=== PATIENT | male | born 1935 | race Caucasian/White ===

== ENCOUNTER 2016-11-23 09:29 | Day surgery (SDC) | payer OTHER, MEDICARE ==
[2016-11-22 13:52] VITALS: BMI 27.3
[2016-11-23] MEDS ORDERED: LIDOCAINE HCL 1%, 10 MG/ML (20ML VIAL) ONE (09:50)
[2016-11-23] MEDS ORDERED: PAPAVERINE HCL 30 MG/1 ML 10 ML VIAL NR ONE (10:11)
[2016-11-23] MEDS ORDERED: PROPOFOL 20 ML ONE ×5 (10:43→13:02)
[2016-11-23] MEDS ORDERED: MIDAZOLAM HCL 2 MG/2 ML SINGLE DOSE VIAL ONE ×2 (10:48→11:51)
--- NOTE | 2016-11-23 11:20 | HP ---
History & Physical Update - History History: No Change - Physical Physical: No Change - Assessment Assessment: No Change - Plan Plan: No Change (81 yo M presents to [facility] today for planned creation of left arm AV fistula with Dr. Suarez.)
[2016-11-23] MEDS ORDERED: ePHEDrine SULFATE 50 MG/1 ML AMPULE ONE (12:01)
[2016-11-23] MEDS ORDERED: PHENYLEPHRINE HCL 10 MG/1 ML SINGLE DOSE VIAL ONE (12:02)
[2016-11-23] MEDS ORDERED: SODIUM CHLORIDE 0.9% P/F 10 ML VIAL IJ ONE (12:02)
[2016-11-23] MEDS ORDERED: LIDOCAINE HCL 1%, 10 MG/ML (50 mL VIAL) IJ ONE ×2 (12:06)
[2016-11-23] MEDS ORDERED: POVIDONE-IODINE OINTMENT 10% - 28.4 GM TUBE TP ONE (12:46)
--- NOTE | 2016-11-23 13:21 | OP ---
Operative Note - Note: Operative Date: 11/23/16 Pre-Operative Diagnosis: Renal failure Operation: Creation AV fistula left arm Findings: Patent antecubital vein with cephalic vein proximally. Brachial artery 4-5 mm Post-Operative Diagnosis: Same as Pre-op Surgeon: Ravinder Suarez Teradata Developer: Zuleima Portillo Anesthesiologist/PHYSICAL THERAPIST TECHNICIAN: Jeremie Villatoro Anesthesia: Fractional Estimated Blood Loss (mls): 30
--- NOTE | 2016-11-23 13:24 | HP ---
Admitting History and Physical - Admission History of Present Illness: 81 year old male with chronic renal disease who will need dialysis in the near future. Right handed. History Source: Patient - Past Medical History Cardiovascular: Yes: HTN Pulmonary: Yes: COPD Gastrointestinal: Yes: Diverticulitis. No: Cancer Hepatobiliary: Yes: Cholelithiasis Renal/: Yes: Renal Inusuff, BPH Heme/Onc: Yes: Anemia Musculoskeletal: Yes: Osteoarthritis Rheumatology: Yes: Gout ENT: Yes: Allergic Rhinitis - Past Surgical History Past Surgical History: Yes: Appendectomy - Smoking History Smoking history: Never smoked Have you smoked in the past 12 months: No Aproximately how many cigarettes per day: 0 - Alcohol/Substance Use Hx Alcohol Use: No History of Substance Use: reports: None - Social History History of Recent Travel: No Home Medications - Allergies Allergies/Adverse Reactions: Allergies Allergy/AdvReac Type Severity Reaction Status Date / Time No Known Allergies Allergy Verified 11/23/16 10:05 - Home Medications Home Medications: Ambulatory Orders RX: Hydralazine HCl 100 mg PO TID 12/24/13 RX: Sodium Bicarbonate 650 mg PO TID 12/24/13 RX: Tamsulosin HCl 0.4 mg PO DAILY 12/24/13 RX: Diltiazem Cd [Cardizem Cd -] 360 mg PO DAILY 02/02/16 RX: Ferrous Sulfate [Feosol] 325 mg PO DAILY 02/02/16 RX: Finasteride [Proscar -] 5 mg PO DAILY 02/02/16 RX: Clonidine HCl 0.1 mg PO BID 02/03/16 Physical Examination Vital Signs: Vital Signs Temperature 97.8 F 11/23/16 10:07 Pulse Rate 96 H 11/23/16 10:07 Respiratory Rate 16 11/23/16 10:07 Blood Pressure 135/63 11/23/16 10:07 O2 Sat by Pulse Oximetry (%) 96 11/23/16 10:07 Constitutional: Yes: No Distress Eyes: Yes: EOM Intact HENT: Yes: Atraumatic, Normocephalic Neck: Yes: Supple Cardiovascular: Yes: Regular Rate and Rhythm Respiratory: Yes: Regular Gastrointestinal: Yes: Soft Edema: No Peripheral Pulses WNL: Yes Problem List - Problems (1) Chronic kidney disease, stage 5 Assessment/Plan: Plan creation AV fistula left arm. Code(s): N18.5 - CHRONIC KIDNEY DISEASE, STAGE 5
[2016-11-23] MEDS ORDERED: oxyCODONE HCL 5 MG TABLET PO PRN (13:25)
[2016-11-23 14:27] VITALS: TEMP 98.3
--- NOTE | 2016-11-23 14:33 | SURG ---
Surgery Stemhole Borer And Topper Note Stemhole Borer And Topper: Zuleima Portillo PA-C Date of Service: 11/23/16 Diagnosis: Renal failure Procedure: Creation AV fistula left arm I was present for the entirety of the operative procedure. For further detail, please refer to operative report. Visit type - Case Type Case Type: Scheduled Admission - New patient This patient is new to me today: Yes Date on this admission: 11/23/16
[2016-11-23 15:46] VITALS: BP 115/52; PULSE 80
--- NOTE | 2016-11-24 08:59 | OP ---
DATE OF OPERATION: 11/23/2016 SURGEON: Ravinder Suarez MD PLANT CHANGER: ZEYNEP Portillo PROCEDURE: Creation arteriovenous fistula left arm. PREOPERATIVE DIAGNOSIS: Renal failure. POSTOPERATIVE DIAGNOSIS: Renal failure. ANESTHESIA: Fractional. ANESTHESIOLOGIST: Jeremie Villatoro MD OPERATIVE FINDINGS: The antecubital vein was patent, with a diameter of approximately 3 to 4 mm. The brachial artery was patent, with a good pulse. OPERATIVE PROCEDURE: Following routine patient identification, side and site verification, intravenous sedation was established. The left arm was prepped with ChloraPrep. One percent Xylocaine was infiltrated in the antecubital fossa, and a skin incision was made between the cephalic vein and brachial artery, which had been mapped preoperatively with duplex imaging. The vein was identified and was mobilized. It was ligated distally and incised. It was distended with heparin and papaverine solution. A number 5 feeding tube was passed proximally without resistance. The distal vein was too small to allow the number 8 feeding tube to be passed. The brachial artery was then exposed by deepening the incision through the muscle fascia. It was encircled proximally and distally with vessel loops. The artery was then occluded with bulldog clamp and vessel loop, and opened on exposed surface with a 6-mm arteriotomy. The vein was freed after dividing all side branches and spatulated. It was anastomosed to the side of the artery with running suture of 6-0 Prolene. Prior to completion of the suture line, the area was allowed to back bleed and the vein was flushed with heparin solution. The suture line was completed and all vessels were released. There was good flow through the anastomosis with a palpable thrill in the vein. The wound was closed with interrupted suture of 3-0 Vicryl and skin davion. Sterile dressings were applied. The patient was taken to the recovery room in stable condition. Giselle [id number]
== END 2016-11-23 15:40 | disposition home or self-care (01) ==
LOC: JASU-SURG 09:29
PROVIDERS: ATTEND Surgery
PROC: 03180ZD Bypass Left Brachial Artery to Upper Arm Vein, Open Approach (ICD-10-PCS; principal; 2016-11-23 11:00)
DX: I12.0 Hypertensive chronic kidney disease with stage 5 chronic kidney disease or end stage renal disease (principal); N18.6 End stage renal disease; Z99.2 Dependence on renal dialysis
CPT/HCPCS: 94760

== ENCOUNTER 2017-10-28 08:35 | Emergency (ER) | payer OTHER, MEDICARE ==
[2017-10-28 08:40] VITALS: BP 160/77; PULSE 94; BMI 25.8
--- NOTE | 2017-10-28 08:49 | PDOC ---
Attending Attestation - Resident Resident Name: Yue Bhagat - HPI HPI: 10/28/17 10:02 Pt presents to the ED requesting HD. he was told by Dr. Johnson that his potassium was high and that he should come to the ED to be admitted for HD. Denies complaints. - Physicial Exam PE: 10/28/17 10:04 Agree with resident exam. Patient is well appearing and in no acute distress. Lungs are clear. - Medical Decision Making 10/28/17 10:05 Pt presents to the ED requesting HD. Sent in by Dr. Johnson. Will check labs , admit for HD.
--- NOTE | 2017-10-28 08:52 | PDOC ---
History of Present Illness - General Chief Complaint: Revisit, Lab Variance Stated Complaint: PCP SENT Time Seen by Provider: 10/28/17 08:46 - History of Present Illness Initial Comments: 10/28/17 09:21 82 y.o. male with a PMH of HTN and worsening CKD presents to the ED following lab work @ his food beverage attendant's office that showed hyperkalemia at a self- reported level of 6. Patient states he had an AV fistula placed in 2016 in anticipation of starting dialysis. Patient denies any chest pain, shortness of breath, nausea/vomiting, constipation/diarrhea, or fevers/chills. Patient's son @ bedside note patient has been evaluated weekly by Dr. Johnson (nephrology ) for his CKD and they decided to initiate HD today following the reported hyperakalemia. NKDA Surgical: appendectomy (childhood), LUE fistula (2016) Social: denies current nicotine (previously 1 ppd - 10 years), denies alcohol, denies recreational drugs PMD: Dr. Mccoy Past History - Past Medical History Allergies/Adverse Reactions: Allergies Allergy/AdvReac Type Severity Reaction Status Date / Time No Known Allergies Allergy Verified 10/28/17 08:41 Home Medications: Ambulatory Orders Diltiazem HCl [Diltiazem ER] 360 mg PO ASDIR 10/28/17 Hydralazine HCl 100 mg PO TID 10/28/17 cloNIDine HCL [Catapres -] 0.3 mg PO TID 10/28/17 Anemia: No Asthma: No Cancer: No Cardiac Disorders: No CVA: No COPD: No CHF: No Dementia: No Diabetes: No GI Disorders: No Disorders: Yes (LARGE PROSTATE) HTN: Yes Hypercholesterolemia: Yes Liver Disease: No Seizures: No Thyroid Disease: No - Surgical History Abdominal Surgery: No Appendectomy: Yes (RUPTURED 30 YRS AGO) Cardiac Surgery: No Cholecystectomy: No Lung Surgery: No Neurologic Surgery: No Orthopedic Surgery: No - Suicide/Smoking/Psychosocial Hx Smoking Status: No Smoking History: Never smoked Have you smoked in the past 12 months: No Number of Cigarettes Smoked Daily: 0 Hx Alcohol Use: No Drug/Substance Use Hx: No Substance Use Type: None Hx Substance Use Treatment: No Review of Systems - Review of Systems Constitutional: No: Chills, Fever HEENTM: No: Blurred Vision Respiratory: No: Cough, Shortness of Breath Cardiac (ROS): No: Chest Pain, Lightheadedness, Palpitations ABD/GI: No: Constipated, Diarrhea, Nausea, Vomiting : No: Burning, Dysuria *Physical Exam - Vital Signs Last Vital Signs Temp Pulse Resp BP Pulse Ox 94 H 20 160/77 99 10/28/17 08:37 10/28/17 08:37 10/28/17 08:37 10/28/17 08:37 - Physical Exam General Appearance: Yes: Nourished, Appropriately Dressed HEENT: positive: EOMI. negative: Scleral Icterus (R), Scleral Icterus (L) Neck: positive: Trachea midline, Supple Respiratory/Chest: positive: Lungs Clear Cardiovascular: positive: S1, S2. negative: Edema, JVD, Murmur Gastrointestinal/Abdominal: positive: Normal Bowel Sounds Extremity: positive: Normal Capillary Refill, Normal Inspection, Other (LUE fistula - audible bruit) Integumentary: positive: Normal Color, Dry, Warm Neurologic: positive: Fully Oriented, Alert ED Treatment Course - LABORATORY CBC & Chemistry Diagram: 10/28/17 09:30 10/28/17 09:30 Medical Decision Making - Medical Decision Making 10/28/17 09:23 Well appearing 82 y.o. male who presents to ED for initiation of dialysis. Patient notes reported h/o recent hyperkalemia @ food beverage attendant's office prompting his visit to our ED for admission. Will obtain basic labs + EKG/CXR for admission. Case d/w Dr. Ware (food beverage attendant covering for Dr. Johnson) and Dr. Mccoy agree w/admission for HD initiation. 10/28/17 11:52 K+ 4.9 (slight hemolysis); Cr 6.8 (3.1 in 01/2016). Hospitalist paged for admission. 10/28/17 12:59 Patient refusing repeat K+ and admission for dialysis. Paged Dr. Ware to discuss case. Patient and patient's son and @ bedside counseled on risks of hyperkalemia including arryhtmia leading to and patient discharged home against medical advice. *DC/Admit/Observation/Transfer Diagnosis at time of Disposition: AMA - Signed out against medical advice - Discharge Dispostion Disposition: HOME Condition at time of disposition: Good - Referrals Referrals: Parker Mccoy MD [Primary Care Provider] - - Patient Instructions - Post Discharge Activity
[2017-10-28 09:46] LABS: BASO % 0.8 % (0-2.0); EOS % 6.6 % (0-4.5); HEMATOCRIT 31.3 % (35.4-49); HEMOGLOBIN 10.3 GM/dL (11.7-16.9); LYMPH % 24.7 % (8-40); MCH 31.1 pg (25.7-33.7); MEAN CELL VOLUME 94.1 fl (80-96); MEAN PLT VOLUME 8.1 fl (7.5-11.1); MONO % 7.3 % (3.8-10.2); NEUT % 60.6 % (42.8-82.8); PLATELET COUNT 192 K/MM3 (134-434); RBC 3.33 M/mm3 (4.00-5.60); RDW 13.9 % (11.9-15.9); WHITE BLOOD COUNT 7.6 K/mm3 (4.0-10.0)
[2017-10-28 09:59] VITALS: TEMP 97.8
[2017-10-28 10:52] LABS: ALBUMIN 3.7 g/dl (3.4-5.0); ALK PHOS 99 U/L (45-117); ANION GAP 15 (8-16); BILIRUBIN,TOTAL 0.4 mg/dL (0.2-1.0); BLOOD UREA NITROGEN 86 mg/dL (7-18); CALCIUM 9.4 mg/dL (8.5-10.1); CHLORIDE 105 mmol/L (98-107); CO2 21 mmol/L (21-32); CREATININE 6.8 mg/dL (0.7-1.3); GLUCOSE,RANDOM 105 mg/dL (74-106); SGPT/ALT 15 U/L (12-78); SODIUM 141 mmol/L (136-145); TOT PROT 7.3 g/dl (6.4-8.2)
[2017-10-28 11:17] LABS: POTASSIUM 4.9 mmol/L (3.5-5.1)
[2017-10-28 11:18] LABS: SGOT/AST 25 U/L (15-37)
--- NOTE | 2017-10-28 11:38 | EKG ---
Test Reason : Blood Pressure : / mmHG Vent. Rate : 076 BPM Atrial Rate : 076 BPM P-R Int : 204 ms QRS Dur : 092 ms QT Int : 406 ms P-R-T Axes : 082 -18 014 degrees QTc Int : 456 ms NORMAL SINUS RHYTHM NONSPECIFIC ST ABNORMALITY BASELINE ARTIFACT ABNORMAL ECG Confirmed by MD DANNY, GRACY ([id number]) on 10/28/2017 11:37:56 AM Referred By: Confirmed By:GRACY DELGADO MD
[2017-10-28 11:40] LABS: URINE APPEARANCE CLEAR; URINE BILIRUBIN NEGATIVE (NEGATIVE); URINE BLOOD NEGATIVE (NEGATIVE); URINE COLOR STRAW; URINE GLUCOSE (UA) NEGATIVE (NEGATIVE); URINE KETONE NEGATIVE (NEGATIVE); URINE LEUK ESTERASE NEGATIVE (NEGATIVE); URINE NITRITE NEGATIVE (NEGATIVE); URINE UROBILINOGEN NEGATIVE mg/dL (0.2-1.0)
[2017-10-28 11:58] LABS: URINE PROTEIN 2+ (NEGATIVE)
[2017-10-28 12:36] LABS: URINE MUCUS RARE
[2017-10-28] MEDS ORDERED: EPOETIN ALFA 10,000 UNIT/1 ML VIAL IVPUSH ONE (13:04)
[2017-10-29 08:12] LABS: MAGNESIUM 2.6 mg/dL (1.8-2.4); PHOSPHOROUS 5.5 mg/dL (2.5-4.9)
== END 2017-10-28 13:01 | disposition home or self-care (01) ==
LOC: JER 08:35
DX: Z53.21 Procedure and treatment not carried out due to patient leaving prior to being seen by health care provider (principal); I10 Essential (primary) hypertension; E78.00 Pure hypercholesterolemia, unspecified; N40.0 Benign prostatic hyperplasia without lower urinary tract symptoms
CPT/HCPCS: 36415; 71046-TC-FY; 80053; 81003; 81015; 83735; 84100; 85025; 93005; 93010; 99283-25

== ENCOUNTER 2021-08-12 19:25 | Emergency (ER) | payer OTHER, MEDICARE ==
[2021-08-12 20:19] VITALS: BP 173/65; PULSE 64; TEMP 97.7; BMI 24.9
== END 2021-08-12 21:41 | disposition home or self-care (01) ==
LOC: JER 19:25
DX: S51.812A Laceration without foreign body of left forearm, initial encounter (principal); Y99.9 Unspecified external cause status
CPT/HCPCS: 99281-25

== ENCOUNTER 2021-09-22 04:12 | Day surgery (SDC) | payer OTHER, MEDICARE ==
[2021-09-20 15:49] VITALS: BMI 27.3
[2021-09-22] MEDS ORDERED: MIDAZOLAM HCL 2 MG/2 ML SINGLE DOSE VIAL ONE (14:50)
[2021-09-22] MEDS ORDERED: PROPOFOL 20 ML ONE (14:50)
[2021-09-22] MEDS ORDERED: HEPARIN NA (PORCINE) 5,000 UNITS/ML 1ML VIAL ONE (14:52)
[2021-09-22] MEDS ORDERED: LIDOCAINE HCL 1%, 10 MG/ML (20ML VIAL) ONE (14:52)
[2021-09-22] MEDS ORDERED: POVIDONE-IODINE OINTMENT 10% - 28.4 GM TUBE ONE (14:53)
[2021-09-22] MEDS ORDERED: ceFAZolin SODIUM 1 GM VIAL IVPB ONE (15:42)
[2021-09-22] MEDS ORDERED: HEPARIN NA (PORCINE) 5,000 UNITS/ML 1ML VIAL SQ ONE (15:49)
[2021-09-22] MEDS ORDERED: LIDOCAINE HCL 1%, 10 MG/ML (20ML VIAL) NR ONE (15:50)
[2021-09-22] MEDS ORDERED: ceFAZolin SODIUM 1 GM VIAL ONE (16:03)
[2021-09-22] MEDS ORDERED: ONDANSETRON 4 MG/2 ML VIAL ONE (16:03)
[2021-09-22] MEDS ORDERED: oxyCODONE HCL 5 MG TABLET PO PRN ×2 (17:24→17:26)
[2021-09-22] MEDS ORDERED: ONDANSETRON 4 MG/2 ML VIAL IVPUSH PRN (17:26)
[2021-09-22] MEDS ORDERED: ACETAMINOPHEN 1000 MG/100 ML BAG IVPB PRN (17:27)
[2021-09-22] MEDS ORDERED: LABETALOL HCL 5 MG/1 ML (100MG/20 ML VIAL) ONE (17:51)
[2021-09-22 18:07] VITALS: TEMP 97.5
[2021-09-22] MEDS ORDERED: hydrALAZINE HCL 20 MG/ML VIAL ONE (18:18)
[2021-09-22] MEDS ORDERED: LABETALOL HCL 5 MG/1 ML (100MG/20 ML VIAL) IVPUSH ONE (18:20)
[2021-09-22] MEDS ORDERED: hydrALAZINE HCL 20 MG/ML VIAL IVPUSH ONE (18:21)
[2021-09-22 19:38] VITALS: BP 108/58; PULSE 65
== END 2021-09-22 19:37 | disposition home or self-care (01) ==
LOC: JASU-SURG 04:12
PROVIDERS: ATTEND Surgery
PROC: 03180JD Bypass Left Brachial Artery to Upper Arm Vein with Synthetic Substitute, Open Approach (ICD-10-PCS; principal; 2021-09-22 16:00)
DX: T82.898A Other specified complication of vascular prosthetic devices, implants and grafts, initial encounter (principal); Y83.2 Surgical operation with anastomosis, bypass or graft as the cause of abnormal reaction of the patient, or of later complication, without mention of misadventure at the time of the procedure; I12.0 Hypertensive chronic kidney disease with stage 5 chronic kidney disease or end stage renal disease; N18.6 End stage renal disease; Z99.2 Dependence on renal dialysis
CPT/HCPCS: 94760; J1644

== ENCOUNTER 2022-09-26 10:29 | Inpatient (IN) | payer OTHER, MEDICARE ==
[2022-09-26] MEDS ORDERED: ACETAMINOPHEN INJECTION 100 ML IVPB ONE (11:51)
[2022-09-26] MEDS ORDERED: ACETAMINOPHEN 500 MG TABLET (FP) PO ONE (11:52)
[2022-09-26] MEDS ORDERED: ACETAMINOPHEN 1000 MG/100 ML BAG IVPB ONE (12:01)
[2022-09-26 12:32] LABS: HEMATOCRIT 37.2 % (35.4-49); HEMOGLOBIN 12.4 GM/dL (11.7-16.9); MCH 32.1 pg (25.7-33.7); MCHC 33.3 g/dl (32.0-35.9); MEAN CELL VOLUME 96.4 fl (80-96); MEAN PLT VOLUME 7.8 fl (7.5-11.1); PLATELET COUNT 131 10^3/uL (134-434); RBC 3.86 M/mm3 (4.00-5.60); WHITE BLOOD COUNT 14.1 K/mm3 (4.0-10.0)
[2022-09-26 12:34] LABS: EPI CELLS 2 /uL (0-25.1); HYALINE CASTS 0 /uL (0-3.1); PH,URINE >= 9.0 (5.0-8.0); URINE APPEARANCE CLEAR; URINE BACTERIA 8 /uL (0-1359); URINE BILIRUBIN NEGATIVE (NEGATIVE); URINE COLOR YELLOW; URINE GLUCOSE (UA) TRACE (NEGATIVE); URINE KETONE NEGATIVE (NEGATIVE); URINE LEUK ESTERASE NEGATIVE (NEGATIVE); URINE NITRITE NEGATIVE (NEGATIVE); URINE PROTEIN 3+ (NEGATIVE); URINE RBC 396 /uL (0-23.9); URINE UROBILINOGEN 0.2 mg/dL (0.2-1.0); URINE WBC 5 /uL (0-25.8)
[2022-09-26 12:39] LABS: INR 1.08 (0.83-1.09); PROTHROMBIN TIME (PATIENT) 12.4 SEC (9.7-13.0); VENOUS BASE EXCESS 2.5 mmol/L (-2-2); VENOUS O2 SATURATION 87.7 % (70-80); VENOUS PCO2 36.4 mmHg (38-52); VENOUS PH 7.471 (7.310-7.410)
[2022-09-26 12:42] LABS: ACTIVATED PTT 29.7 SECONDS (25.2-36.5)
[2022-09-26 13:04] LABS: ALBUMIN 3.2 g/dl (3.4-5.0); BLOOD UREA NITROGEN 33.4 mg/dL (7-18); CALCIUM 10.2 mg/dL (8.5-10.1)
[2022-09-26 13:07] LABS: CREATININE 5.8 mg/dL (0.55-1.3)
[2022-09-26 13:08] LABS: ANISOCYTOSIS 0; MACROCYTOSIS 0; TOT PROT 6.4 g/dl (6.4-8.2)
[2022-09-26 13:09] LABS: BILIRUBIN,TOTAL 0.5 mg/dL (0.2-1)
[2022-09-26] MEDS ORDERED: PIPERACILLIN/TAZOB 4.5 GM 4.5 GM in DEXTROSE 5%-WATER 100 ML IVPB ONE (13:38)
[2022-09-26] MEDS ORDERED: PIPERACILLIN/TAZOB 4.5 GM 4.5 GM/100 ML BAG IVPB ONE (13:47)
[2022-09-26] MEDS ORDERED: ACETAMINOPHEN 325 MG TABLET (FP) PO PRN (17:44)
[2022-09-26 21:26] LABS: HEMOGLOBIN 11.8 GM/dL (11.7-16.9); MCH 31.9 pg (25.7-33.7); MCHC 32.8 g/dl (32.0-35.9); MEAN CELL VOLUME 97.2 fl (80-96); MEAN PLT VOLUME 8.2 fl (7.5-11.1); PLATELET COUNT 126 10^3/uL (134-434); RDW 14.2 % (11.9-15.9)
[2022-09-26] MEDS ORDERED: HEPARIN NA (PORCINE) 5,000 UNITS/ML 1ML VIAL SQ SCH (22:00)
[2022-09-26] MEDS: PIPERACILLIN/TAZOB 2.25 GM 2.25 GM in DEXTROSE 5%-WATER - 50 ML IVPB SCH (22:49)
[2022-09-27 02:57] LABS: INR 1.21 (0.83-1.09); PROTHROMBIN TIME (PATIENT) 13.9 SEC (9.7-13.0)
[2022-09-27 03:02] LABS: HEMATOCRIT 36.8 % (35.4-49); HEMOGLOBIN 12.4 GM/dL (11.7-16.9); MCH 32.3 pg (25.7-33.7); MCHC 33.6 g/dl (32.0-35.9); MEAN CELL VOLUME 96.2 fl (80-96); MEAN PLT VOLUME 8.3 fl (7.5-11.1); PLATELET COUNT 117 10^3/uL (134-434); RBC 3.82 M/mm3 (4.00-5.60); WHITE BLOOD COUNT 8.6 K/mm3 (4.0-10.0)
[2022-09-27] MEDS ORDERED: VANCOMYCIN PREMIX 1.5 GM 1,500 MG/300 ML BAG IVPB ONE (03:30)
[2022-09-27] MEDS ORDERED: SODIUM CHLORIDE 500 ML IV STA (06:29)
[2022-09-27] MEDS: PIPERACILLIN/TAZOB 2.25 GM 2.25 GM in DEXTROSE 5%-WATER - 50 ML IVPB SCH ×2 (06:34→15:46)
[2022-09-27 08:56] LABS: ANISOCYTOSIS 0; HELMET CELLS 0; HOWELL-JOLLY BODIES 0; MACROCYTOSIS 0; OVALOCYTE 0; ROULEAU 0; SICKELED CELLS 0; TARGET CELLS 0; TEAR DROP CELLS 0; TOXIC GRANULATION 0
[2022-09-27 10:36] LABS: BASO % 0.1 % (0-2.0); HEMATOCRIT 34.6 % (35.4-49); HEMOGLOBIN 11.3 GM/dL (11.7-16.9); LYMPH % 6.2 % (8-40); MCH 31.6 pg (25.7-33.7); MCHC 32.7 g/dl (32.0-35.9); MEAN CELL VOLUME 96.6 fl (80-96); MEAN PLT VOLUME 9.1 fl (7.5-11.1); MONO % 8.1 % (3.8-10.2); NEUT % 85.6 % (42.8-82.8); PLATELET COUNT 125 10^3/uL (134-434); RBC 3.58 M/mm3 (4.00-5.60); RDW 13.6 % (11.9-15.9)
[2022-09-27 10:38] LABS: INR 1.21 (0.83-1.09); PROTHROMBIN TIME (PATIENT) 13.9 SEC (9.7-13.0)
[2022-09-27 10:56] LABS: CHLORIDE 105 mmol/L (98-107); SODIUM 140 mmol/L (136-145)
[2022-09-27 11:05] LABS: ALBUMIN 2.6 g/dl (3.4-5.0); ANION GAP 15 MMOL/L (8-16); CO2 20 mmol/L (21-32); GLUCOSE,RANDOM 114 mg/dL (74-106); MAGNESIUM 2.1 mg/dL (1.8-2.4)
[2022-09-27 11:06] LABS: PHOSPHOROUS 7.2 mg/dL (2.5-4.9); SGPT/ALT 43 U/L (13-61)
[2022-09-27 11:07] LABS: SGOT/AST 98 U/L (15-37)
[2022-09-27 11:08] LABS: BILIRUBIN,TOTAL 0.7 mg/dL (0.2-1); TOT PROT 5.5 g/dl (6.4-8.2)
[2022-09-27 11:09] LABS: ALK PHOS 69 U/L (45-117)
[2022-09-27 11:10] LABS: BLOOD UREA NITROGEN 61.1 mg/dL (7-18); CREATININE 8.5 mg/dL (0.55-1.3)
[2022-09-27] MEDS ORDERED: HEPARIN NA (PORCINE) 5,000 UNITS/ML 1ML VIAL ONE (15:04)
[2022-09-27] MEDS ORDERED: BUPIVACAINE HCL/PF 0.5% (5MG/ML) 10 ML VIAL ONE (15:18)
[2022-09-27] MEDS ORDERED: LIDOCAINE HCL 1%, 10 MG/ML (20ML VIAL) ONE (15:18)
[2022-09-27] MEDS ORDERED: PAPAVERINE HCL 30 MG/1 ML 10 ML VIAL NR ONE (15:18)
[2022-09-27] MEDS ORDERED: POVIDONE-IODINE OINTMENT 10% - 28.4 GM TUBE ONE (15:19)
[2022-09-27] MEDS ORDERED: SODIUM CHLORIDE 250 ML IV PRN ×2 (16:05→18:55)
[2022-09-27] MEDS ORDERED: PROMETHAZINE HCL 25 MG/1 ML VIAL IVPB PRN ×2 (17:15→18:55)
[2022-09-27] MEDS ORDERED: ONDANSETRON 4 MG/2 ML VIAL IVPUSH PRN ×2 (17:15→18:55)
[2022-09-27] MEDS ORDERED: SODIUM CHLORIDE 1,000 ML IV SCH ×2 (17:15→18:55)
[2022-09-27] MEDS ORDERED: PROPOFOL 20 ML ONE (17:32)
[2022-09-27] MEDS ORDERED: LIDOCAINE HCL/PF 2% SDV 5ML VIAL ONE (17:36)
[2022-09-27] MEDS ORDERED: DEXAMETHASONE SOD PHOSPHATE 4 MG/1 ML VIAL ONE (17:49)
[2022-09-27] MEDS ORDERED: ONDANSETRON 4 MG/2 ML VIAL ONE (17:49)
[2022-09-27] MEDS ORDERED: HEPARIN NA (PORCINE) 5,000 UNITS/ML 1ML VIAL TP ONE (18:17)
[2022-09-27] MEDS ORDERED: ACETAMINOPHEN 325 MG TABLET (FP) PO PRN ×2 (18:55→19:05)
[2022-09-27] MEDS ORDERED: oxyCODONE HCL 5 MG TABLET PO PRN (19:05)
[2022-09-28] MEDS ORDERED: SODIUM CHLORIDE 250 ML IV PRN ×2 (08:55→12:07)
[2022-09-28 10:53] LABS: INR 1.07 (0.83-1.09); PROTHROMBIN TIME (PATIENT) 12.3 SEC (9.7-13.0)
[2022-09-28 10:58] LABS: BASO % 0.1 % (0-2.0); HEMATOCRIT 32.5 % (35.4-49); HEMOGLOBIN 10.9 GM/dL (11.7-16.9); LYMPH % 6.9 % (8-40); MCH 32.2 pg (25.7-33.7); MCHC 33.4 g/dl (32.0-35.9); MEAN CELL VOLUME 96.5 fl (80-96); MEAN PLT VOLUME 9.4 fl (7.5-11.1); MONO % 8.4 % (3.8-10.2); NEUT % 84.6 % (42.8-82.8); PLATELET COUNT 136 10^3/uL (134-434); RBC 3.37 M/mm3 (4.00-5.60); RDW 13.9 % (11.9-15.9); WHITE BLOOD COUNT 16.6 K/mm3 (4.0-10.0)
[2022-09-28 11:11] LABS: CHLORIDE 103 mmol/L (98-107); SODIUM 139 mmol/L (136-145)
[2022-09-28 11:22] LABS: CALCIUM 10.1 mg/dL (8.5-10.1); GLUCOSE,RANDOM 119 mg/dL (74-106)
[2022-09-28 11:23] LABS: ALBUMIN 2.6 g/dl (3.4-5.0); ANION GAP 16 MMOL/L (8-16); CO2 20 mmol/L (21-32); MAGNESIUM 2.2 mg/dL (1.8-2.4)
[2022-09-28 11:25] LABS: SGOT/AST 59 U/L (15-37); SGPT/ALT 49 U/L (13-61)
[2022-09-28 11:26] LABS: BILIRUBIN,TOTAL 0.5 mg/dL (0.2-1); TOT PROT 5.5 g/dl (6.4-8.2)
[2022-09-28 11:27] LABS: ALK PHOS 73 U/L (45-117)
[2022-09-28 11:36] LABS: BLOOD UREA NITROGEN 88.2 mg/dL (7-18); CREATININE 10.1 mg/dL (0.55-1.3)
[2022-09-28] MEDS ORDERED: SODIUM CHLORIDE 1,000 ML IV SCH (12:07)
[2022-09-28] MEDS ORDERED: ACETAMINOPHEN 325 MG TABLET (FP) PO PRN (12:07)
[2022-09-28] MEDS ORDERED: oxyCODONE HCL 5 MG TABLET PO PRN (12:07)
[2022-09-28] MEDS: CALCIUM ACETATE 667 MG CAPSULE (FP) PO SCH ×2 (14:16→22:34)
[2022-09-28] MEDS ORDERED: EPOETIN ALFA-EPBX 10,000 UNIT/ML VIAL SQ ONE (16:05)
[2022-09-28] MEDS: METOPROLOL TARTRATE 25 MG TABLET (FP) PO SCH ×2 (16:33→22:35)
[2022-09-28] MEDS ORDERED: HEPARIN NA (PORCINE) 5,000 UNITS/ML 1ML VIAL SQ SCH (22:00)
[2022-09-28] MEDS ORDERED: APIXABAN 5 MG TABLET PO SCH (22:00)
[2022-09-28] MEDS: TAMSULOSIN HCL 0.4 MG CAP PO SCH (22:34)
[2022-09-28] MEDS: APIXABAN 2.5 MG TABLET PO SCH (22:35)
[2022-09-28] MEDS: ACETAMINOPHEN 325 MG TABLET (FP) PO PRN (22:48)
[2022-09-29] MEDS: CALCIUM ACETATE 667 MG CAPSULE (FP) PO SCH ×3 (06:42→22:17)
[2022-09-29 08:18] LABS: HEMATOCRIT 31.5 % (35.4-49); HEMOGLOBIN 10.6 GM/dL (11.7-16.9); MCHC 33.5 g/dl (32.0-35.9); MEAN CELL VOLUME 95.5 fl (80-96); MEAN PLT VOLUME 9.5 fl (7.5-11.1); PLATELET COUNT 127 10^3/uL (134-434); RBC 3.29 M/mm3 (4.00-5.60); RDW 13.8 % (11.9-15.9); WHITE BLOOD COUNT 12.3 K/mm3 (4.0-10.0)
[2022-09-29] MEDS ORDERED: SODIUM CHLORIDE 250 ML IV PRN (08:30)
[2022-09-29 08:38] LABS: ALBUMIN 2.4 g/dl (3.4-5.0); CALCIUM 9.7 mg/dL (8.5-10.1)
[2022-09-29 08:42] LABS: BILIRUBIN,TOTAL 0.7 mg/dL (0.2-1); CREATININE 7.3 mg/dL (0.55-1.3); TOT PROT 5.3 g/dl (6.4-8.2)
[2022-09-29] MEDS: APIXABAN 2.5 MG TABLET PO SCH ×2 (11:07→22:17)
[2022-09-29] MEDS: METOPROLOL TARTRATE 25 MG TABLET (FP) PO SCH ×2 (11:10→22:17)
[2022-09-29] MEDS: FINASTERIDE 5 MG TABLET (FP) PO SCH (11:10)
[2022-09-29 11:27] LABS: ANISOCYTOSIS 0; MACROCYTOSIS 0; OVALOCYTE 1+
[2022-09-29 16:32] LABS: INR 1.24 (0.83-1.09); PROTHROMBIN TIME (PATIENT) 14.3 SEC (9.7-13.0)
[2022-09-29] MEDS: ACETAMINOPHEN 325 MG TABLET (FP) PO PRN ×2 (17:25→22:18)
[2022-09-29] MEDS ORDERED: VANCOMYCIN/WATER FOR INJ (PEG) 1,000 MG/200 ML BAG IVPB ONE (17:30)
[2022-09-29] MEDS: CEFAZOLIN 1 GM in DEXTROSE 5%-WATER - 50 ML IVPB SCH (18:47)
[2022-09-29] MEDS: TAMSULOSIN HCL 0.4 MG CAP PO SCH (22:17)
[2022-09-30] MEDS: CALCIUM ACETATE 667 MG CAPSULE (FP) PO SCH ×3 (06:03→21:53)
[2022-09-30 08:14] LABS: HEMATOCRIT 33.8 % (35.4-49); MCH 31.7 pg (25.7-33.7); MCHC 32.7 g/dl (32.0-35.9); MEAN CELL VOLUME 96.9 fl (80-96); MEAN PLT VOLUME 9.4 fl (7.5-11.1); PLATELET COUNT 136 10^3/uL (134-434); RBC 3.48 M/mm3 (4.00-5.60); RDW 13.9 % (11.9-15.9); WHITE BLOOD COUNT 15.5 K/mm3 (4.0-10.0)
[2022-09-30 08:19] LABS: INR 1.13 (0.83-1.09); PROTHROMBIN TIME (PATIENT) 13.1 SEC (9.7-13.0)
[2022-09-30] MEDS ORDERED: EPOETIN ALFA-EPBX 4,000 UNIT/ML VIAL SQ ONE (08:30)
[2022-09-30 08:39] LABS: CHLORIDE 99 mmol/L (98-107); SODIUM 137 mmol/L (136-145)
[2022-09-30 08:44] LABS: ALBUMIN 2.5 g/dl (3.4-5.0); ANION GAP 12 MMOL/L (8-16); BLOOD UREA NITROGEN 76.6 mg/dL (7-18); CALCIUM 10.1 mg/dL (8.5-10.1); CO2 26 mmol/L (21-32); GLUCOSE,RANDOM 91 mg/dL (74-106)
[2022-09-30 08:47] LABS: SGPT/ALT 60 U/L (13-61)
[2022-09-30 08:48] LABS: SGOT/AST 58 U/L (15-37)
[2022-09-30 08:49] LABS: BILIRUBIN,TOTAL 0.6 mg/dL (0.2-1); TOT PROT 5.6 g/dl (6.4-8.2)
[2022-09-30 08:54] LABS: ALK PHOS 124 U/L (45-117); CREATININE 8.7 mg/dL (0.55-1.3)
[2022-09-30 08:55] LABS: ANISOCYTOSIS 0; HELMET CELLS 0; HOWELL-JOLLY BODIES 0; MACROCYTOSIS 0; OVALOCYTE 0; ROULEAU 0; SICKELED CELLS 0; TARGET CELLS 0; TEAR DROP CELLS 0; TOXIC GRANULATION 0
[2022-09-30] MEDS: FINASTERIDE 5 MG TABLET (FP) PO SCH (13:27)
[2022-09-30] MEDS: METOPROLOL TARTRATE 25 MG TABLET (FP) PO SCH ×2 (13:27→21:53)
[2022-09-30] MEDS: CEFAZOLIN 1 GM in DEXTROSE 5%-WATER - 50 ML IVPB SCH (13:27)
[2022-09-30] MEDS: APIXABAN 2.5 MG TABLET PO SCH ×2 (13:28→21:53)
[2022-09-30] MEDS: TAMSULOSIN HCL 0.4 MG CAP PO SCH (21:53)
[2022-10-01] MEDS: CALCIUM ACETATE 667 MG CAPSULE (FP) PO SCH ×3 (06:09→21:22)
[2022-10-01 07:51] LABS: MCHC 33.5 g/dl (32.0-35.9); MEAN CELL VOLUME 95.5 fl (80-96); MEAN PLT VOLUME 9.1 fl (7.5-11.1); PLATELET COUNT 169 10^3/uL (134-434); RBC 3.14 M/mm3 (4.00-5.60); RDW 13.5 % (11.9-15.9); WHITE BLOOD COUNT 15.3 K/mm3 (4.0-10.0)
[2022-10-01 08:53] LABS: CHLORIDE 99 mmol/L (98-107); SODIUM 137 mmol/L (136-145)
[2022-10-01 08:58] LABS: CALCIUM 9.9 mg/dL (8.5-10.1)
[2022-10-01 08:59] LABS: ALBUMIN 2.6 g/dl (3.4-5.0); ANION GAP 15 MMOL/L (8-16); CO2 24 mmol/L (21-32); GLUCOSE,RANDOM 96 mg/dL (74-106); MAGNESIUM 1.8 mg/dL (1.8-2.4)
[2022-10-01 09:02] LABS: SGOT/AST 45 U/L (15-37); SGPT/ALT 38 U/L (13-61)
[2022-10-01 09:03] LABS: BILIRUBIN,TOTAL 0.5 mg/dL (0.2-1); TOT PROT 5.5 g/dl (6.4-8.2)
[2022-10-01 09:04] LABS: ALK PHOS 125 U/L (45-117)
[2022-10-01 09:09] LABS: ANISOCYTOSIS 0; HELMET CELLS 0; HOWELL-JOLLY BODIES 0; MACROCYTOSIS 0; OVALOCYTE 0; ROULEAU 0; SICKELED CELLS 0; TARGET CELLS 0; TEAR DROP CELLS 0; TOXIC GRANULATION 0
[2022-10-01] MEDS: APIXABAN 2.5 MG TABLET PO SCH ×2 (11:00→21:23)
[2022-10-01] MEDS: FINASTERIDE 5 MG TABLET (FP) PO SCH (11:00)
[2022-10-01] MEDS: CEFAZOLIN 1 GM in DEXTROSE 5%-WATER - 50 ML IVPB SCH (11:00)
[2022-10-01] MEDS: METOPROLOL TARTRATE 25 MG TABLET (FP) PO SCH (13:08)
[2022-10-01 13:19] LABS: INR 1.35 (0.83-1.09); PROTHROMBIN TIME (PATIENT) 15.6 SEC (9.7-13.0)
[2022-10-01] MEDS: TAMSULOSIN HCL 0.4 MG CAP PO SCH (21:23)
[2022-10-01 23:41] VITALS: BMI 23.1
[2022-10-02] MEDS: CALCIUM ACETATE 667 MG CAPSULE (FP) PO SCH ×3 (06:41→23:08)
[2022-10-02 08:08] LABS: HEMATOCRIT 27.4 % (35.4-49); HEMOGLOBIN 9.4 GM/dL (11.7-16.9); MCH 32.6 pg (25.7-33.7); MCHC 34.3 g/dl (32.0-35.9); MEAN CELL VOLUME 94.9 fl (80-96); MEAN PLT VOLUME 8.5 fl (7.5-11.1); PLATELET COUNT 205 10^3/uL (134-434); RBC 2.89 M/mm3 (4.00-5.60); RDW 13.5 % (11.9-15.9); WHITE BLOOD COUNT 13.3 K/mm3 (4.0-10.0)
[2022-10-02 08:27] LABS: CHLORIDE 99 mmol/L (98-107); SODIUM 136 mmol/L (136-145)
[2022-10-02 08:30] LABS: INR 1.28 (0.83-1.09); PROTHROMBIN TIME (PATIENT) 14.8 SEC (9.7-13.0)
[2022-10-02 08:31] LABS: ALBUMIN 2.4 g/dl (3.4-5.0)
[2022-10-02 08:33] LABS: ANION GAP 14 MMOL/L (8-16); CO2 24 mmol/L (21-32); GLUCOSE,RANDOM 106 mg/dL (74-106)
[2022-10-02 08:34] LABS: CALCIUM 10.4 mg/dL (8.5-10.1); SGPT/ALT 26 U/L (13-61)
[2022-10-02 08:35] LABS: SGOT/AST 34 U/L (15-37)
[2022-10-02 08:36] LABS: BILIRUBIN,TOTAL 0.7 mg/dL (0.2-1); TOT PROT 5.3 g/dl (6.4-8.2)
[2022-10-02 08:37] LABS: ALK PHOS 120 U/L (45-117)
[2022-10-02 08:39] LABS: CREATININE 9.3 mg/dL (0.55-1.3)
[2022-10-02 09:22] LABS: ANISOCYTOSIS 0; HELMET CELLS 0; HOWELL-JOLLY BODIES 0; MACROCYTOSIS 0; OVALOCYTE 0; ROULEAU 0; SICKELED CELLS 0; TARGET CELLS 0; TEAR DROP CELLS 0; TOXIC GRANULATION 0
[2022-10-02 09:52] LABS: EPI CELLS 1 /uL (0-25.1); HYALINE CASTS 0 /uL (0-3.1); URINE APPEARANCE CLEAR; URINE BACTERIA 10 /uL (0-1359); URINE BILIRUBIN NEGATIVE (NEGATIVE); URINE COLOR YELLOW; URINE GLUCOSE (UA) NEGATIVE (NEGATIVE); URINE KETONE NEGATIVE (NEGATIVE); URINE LEUK ESTERASE NEGATIVE (NEGATIVE); URINE NITRITE NEGATIVE (NEGATIVE); URINE PROTEIN 2+ (NEGATIVE); URINE RBC 232 /uL (0-23.9); URINE UROBILINOGEN 0.2 mg/dL (0.2-1.0); URINE WBC 4 /uL (0-25.8)
[2022-10-02] MEDS: FINASTERIDE 5 MG TABLET (FP) PO SCH (10:14)
[2022-10-02] MEDS: APIXABAN 2.5 MG TABLET PO SCH ×2 (10:14→23:08)
[2022-10-02] MEDS: METOPROLOL TARTRATE 25 MG TABLET (FP) PO SCH ×2 (10:15→23:07)
[2022-10-02] MEDS: CEFAZOLIN 1 GM in DEXTROSE 5%-WATER - 50 ML IVPB SCH (10:15)
[2022-10-02] MEDS: VITAMIN B COMP W-C 1 EA TABLET (NEPHRO-VITE) PO SCH (10:15)
[2022-10-02] MEDS ORDERED: VANCOMYCIN/WATER FOR INJ (PEG) 1,000 MG/200 ML BAG IVPB ONE (13:37)
[2022-10-02] MEDS: TAMSULOSIN HCL 0.4 MG CAP PO SCH (23:08)
[2022-10-03] MEDS: CALCIUM ACETATE 667 MG CAPSULE (FP) PO SCH ×3 (05:39→21:31)
[2022-10-03 07:45] LABS: HEMATOCRIT 26.2 % (35.4-49); HEMOGLOBIN 8.9 GM/dL (11.7-16.9); MCH 32.6 pg (25.7-33.7); MCHC 34.1 g/dl (32.0-35.9); MEAN CELL VOLUME 95.8 fl (80-96); MEAN PLT VOLUME 8.3 fl (7.5-11.1); PLATELET COUNT 247 10^3/uL (134-434); RBC 2.74 M/mm3 (4.00-5.60); RDW 13.4 % (11.9-15.9); WHITE BLOOD COUNT 14.2 K/mm3 (4.0-10.0)
[2022-10-03 07:51] LABS: INR 1.28 (0.83-1.09); PROTHROMBIN TIME (PATIENT) 14.8 SEC (9.7-13.0)
[2022-10-03 07:52] LABS: CHLORIDE 98 mmol/L (98-107); SODIUM 134 mmol/L (136-145)
[2022-10-03 08:01] LABS: ALBUMIN 2.3 g/dl (3.4-5.0); CALCIUM 10.4 mg/dL (8.5-10.1); GLUCOSE,RANDOM 103 mg/dL (74-106)
[2022-10-03 08:02] LABS: ANION GAP 13 MMOL/L (8-16); BLOOD UREA NITROGEN 97.8 mg/dL (7-18); CO2 23 mmol/L (21-32); MAGNESIUM 1.9 mg/dL (1.8-2.4)
[2022-10-03 08:05] LABS: SGOT/AST 30 U/L (15-37); SGPT/ALT 15 U/L (13-61)
[2022-10-03 08:06] LABS: BILIRUBIN,TOTAL 0.5 mg/dL (0.2-1); TOT PROT 5.4 g/dl (6.4-8.2)
[2022-10-03 08:07] LABS: ALK PHOS 109 U/L (45-117)
[2022-10-03 08:27] LABS: CREATININE 10.1 mg/dL (0.55-1.3)
[2022-10-03] MEDS: METOPROLOL TARTRATE 25 MG TABLET (FP) PO SCH ×2 (09:31→21:33)
[2022-10-03] MEDS: CEFAZOLIN 1 GM in DEXTROSE 5%-WATER - 50 ML IVPB SCH (09:31)
[2022-10-03] MEDS: VITAMIN B COMP W-C 1 EA TABLET (NEPHRO-VITE) PO SCH (09:32)
[2022-10-03] MEDS: FINASTERIDE 5 MG TABLET (FP) PO SCH (09:32)
[2022-10-03] MEDS: APIXABAN 2.5 MG TABLET PO SCH ×2 (09:32→21:32)
[2022-10-03 10:51] LABS: ANISOCYTOSIS 1+; MACROCYTOSIS 0
[2022-10-03] MEDS ORDERED: FUROSEMIDE 40 MG TABLET (FP) PO ONE (11:03)
[2022-10-03] MEDS ORDERED: SODIUM ZIRCONIUM CYCLOSILICATE (LOKELMA) 5 GM PACKET PO SCH (11:15)
[2022-10-03] MEDS: TAMSULOSIN HCL 0.4 MG CAP PO SCH (21:32)
[2022-10-04] MEDS: CALCIUM ACETATE 667 MG CAPSULE (FP) PO SCH ×3 (06:40→21:35)
[2022-10-04 07:34] LABS: HEMATOCRIT 25.8 % (35.4-49); HEMOGLOBIN 8.8 GM/dL (11.7-16.9); MCH 32.5 pg (25.7-33.7); MEAN CELL VOLUME 95.8 fl (80-96); MEAN PLT VOLUME 8.2 fl (7.5-11.1); PLATELET COUNT 270 10^3/uL (134-434); RDW 13.4 % (11.9-15.9); WHITE BLOOD COUNT 14.3 K/mm3 (4.0-10.0)
[2022-10-04 07:36] LABS: INR 1.31 (0.83-1.09); PROTHROMBIN TIME (PATIENT) 15.2 SEC (9.7-13.0)
[2022-10-04 07:42] LABS: CHLORIDE 98 mmol/L (98-107); SODIUM 134 mmol/L (136-145)
[2022-10-04 07:53] LABS: CALCIUM 10.2 mg/dL (8.5-10.1)
[2022-10-04 07:55] LABS: ANION GAP 15 MMOL/L (8-16); BLOOD UREA NITROGEN 101.5 mg/dL (7-18); CO2 21 mmol/L (21-32); GLUCOSE,RANDOM 89 mg/dL (74-106); MAGNESIUM 1.9 mg/dL (1.8-2.4)
[2022-10-04 07:56] LABS: ALBUMIN 2.2 g/dl (3.4-5.0)
[2022-10-04 07:58] LABS: SGPT/ALT 8 U/L (13-61)
[2022-10-04 07:59] LABS: SGOT/AST 24 U/L (15-37)
[2022-10-04 08:00] LABS: BILIRUBIN,TOTAL 0.6 mg/dL (0.2-1); TOT PROT 5.4 g/dl (6.4-8.2)
[2022-10-04 08:01] LABS: ALK PHOS 102 U/L (45-117)
[2022-10-04 09:05] LABS: ANISOCYTOSIS 0; MACROCYTOSIS 0
[2022-10-04] MEDS: CEFAZOLIN 1 GM in DEXTROSE 5%-WATER - 50 ML IVPB SCH (09:29)
[2022-10-04] MEDS: VITAMIN B COMP W-C 1 EA TABLET (NEPHRO-VITE) PO SCH (09:29)
[2022-10-04] MEDS: APIXABAN 2.5 MG TABLET PO SCH ×2 (09:29→21:32)
[2022-10-04] MEDS: FINASTERIDE 5 MG TABLET (FP) PO SCH (09:29)
[2022-10-04] MEDS: METOPROLOL TARTRATE 25 MG TABLET (FP) PO SCH ×2 (09:29→21:33)
[2022-10-04] MEDS ORDERED: SODIUM CHLORIDE 250 ML IV PRN (13:26)
[2022-10-04] MEDS ORDERED: TAMSULOSIN HCL 0.4 MG CAP PO SCH (14:00)
[2022-10-04] MEDS ORDERED: LIDOCAINE HCL 1%, 10 MG/ML (20ML VIAL) ONE ×2 (17:45→18:38)
[2022-10-04] MEDS ORDERED: ceFAZolin SODIUM 1 GM VIAL IVPB ONE (18:57)
[2022-10-04] MEDS ORDERED: LIDOCAINE HCL 1%, 10 MG/ML (50 mL VIAL) INF ONE (19:00)
[2022-10-04] MEDS ORDERED: oxyCODONE HCL 5 MG TABLET PO PRN (19:38)
[2022-10-04] MEDS ORDERED: ACETAMINOPHEN 325 MG TABLET (FP) PO PRN (19:38)
[2022-10-04] MEDS: TAMSULOSIN HCL 0.4 MG CAP PO SCH (21:33)
[2022-10-05] MEDS: CALCIUM ACETATE 667 MG CAPSULE (FP) PO SCH ×3 (06:25→23:13)
[2022-10-05] MEDS: TAMSULOSIN HCL 0.4 MG CAP PO SCH ×3 (06:25→23:13)
[2022-10-05 07:41] LABS: HEMATOCRIT 25.5 % (35.4-49); HEMOGLOBIN 8.6 GM/dL (11.7-16.9); MCH 32.1 pg (25.7-33.7); MCHC 33.7 g/dl (32.0-35.9); MEAN CELL VOLUME 95.3 fl (80-96); MEAN PLT VOLUME 7.9 fl (7.5-11.1); PLATELET COUNT 298 10^3/uL (134-434); RBC 2.68 M/mm3 (4.00-5.60); RDW 13.4 % (11.9-15.9); WHITE BLOOD COUNT 16.3 K/mm3 (4.0-10.0)
[2022-10-05 07:59] LABS: CHLORIDE 98 mmol/L (98-107); SODIUM 135 mmol/L (136-145)
[2022-10-05 08:00] LABS: ANION GAP 13 MMOL/L (8-16); CALCIUM 9.7 mg/dL (8.5-10.1); CO2 24 mmol/L (21-32); GLUCOSE,RANDOM 104 mg/dL (74-106)
[2022-10-05 08:11] LABS: BLOOD UREA NITROGEN 111.2 mg/dL (7-18); CREATININE 11.4 mg/dL (0.55-1.3)
[2022-10-05] MEDS ORDERED: SODIUM CHLORIDE 250 ML IV PRN (10:49)
[2022-10-05] MEDS ORDERED: EPOETIN ALFA-EPBX 10,000 UNIT/ML VIAL SQ ONE ×2 (12:00→13:26)
[2022-10-05] MEDS: VITAMIN B COMP W-C 1 EA TABLET (NEPHRO-VITE) PO SCH (12:33)
[2022-10-05] MEDS: FINASTERIDE 5 MG TABLET (FP) PO SCH (12:33)
[2022-10-05] MEDS: APIXABAN 2.5 MG TABLET PO SCH ×2 (12:33→23:13)
[2022-10-05] MEDS: CEFAZOLIN 1 GM in DEXTROSE 5%-WATER - 50 ML IVPB SCH (12:33)
[2022-10-05] MEDS: METOPROLOL TARTRATE 25 MG TABLET (FP) PO SCH ×2 (12:34→23:13)
[2022-10-05] MEDS ORDERED: VANCOMYCIN/WATER FOR INJ (PEG) 1,000 MG/200 ML BAG IVPB ONE (16:04)
[2022-10-06] MEDS: CALCIUM ACETATE 667 MG CAPSULE (FP) PO SCH ×2 (05:41→14:03)
[2022-10-06] MEDS: TAMSULOSIN HCL 0.4 MG CAP PO SCH (08:29)
[2022-10-06 08:46] LABS: HEMATOCRIT 24.9 % (35.4-49); HEMOGLOBIN 8.5 GM/dL (11.7-16.9); MCH 32.3 pg (25.7-33.7); MEAN PLT VOLUME 7.6 fl (7.5-11.1); PLATELET COUNT 265 10^3/uL (134-434); RBC 2.62 M/mm3 (4.00-5.60); RDW 13.2 % (11.9-15.9)
[2022-10-06 10:18] LABS: ANISOCYTOSIS 0; MACROCYTOSIS 1+
[2022-10-06] MEDS: APIXABAN 2.5 MG TABLET PO SCH (10:41)
[2022-10-06] MEDS: METOPROLOL TARTRATE 25 MG TABLET (FP) PO SCH (10:41)
[2022-10-06] MEDS: VITAMIN B COMP W-C 1 EA TABLET (NEPHRO-VITE) PO SCH (10:42)
[2022-10-06] MEDS: CEFAZOLIN 1 GM in DEXTROSE 5%-WATER - 50 ML IVPB SCH (10:42)
[2022-10-06] MEDS: FINASTERIDE 5 MG TABLET (FP) PO SCH (10:42)
[2022-10-06 13:32] VITALS: BP 128/55; PULSE 73; RESP 18; TEMP 99
== END 2022-10-06 17:15 | disposition home or self-care (01) | DRG 252 ==
LOC: JER 10:29 → JERBED 14:57 → J8W 19:27 → J4W 09-28 12:04 → J7W 10-05 14:56
PROVIDERS: ADMIT Internal Medicine; ATTEND Internal Medicine
PROC: 05PY0JZ Removal of Synthetic Substitute from Upper Vein, Open Approach (ICD-10-PCS; 2022-09-27)
PROC: 03PY0JZ Removal of Synthetic Substitute from Upper Artery, Open Approach (ICD-10-PCS; 2022-09-27)
PROC: 06HM33Z Insertion of Infusion Device into Right Femoral Vein, Percutaneous Approach (ICD-10-PCS; principal; 2022-09-28)
PROC: 5A1D70Z Performance of Urinary Filtration, Intermittent, Less than 6 Hours Per Day (ICD-10-PCS; 2022-09-28)
PROC: 5A1D70Z Performance of Urinary Filtration, Intermittent, Less than 6 Hours Per Day (ICD-10-PCS; 2022-09-30)
PROC: 0JH63XZ Insertion of Tunneled Vascular Access Device into Chest Subcutaneous Tissue and Fascia, Percutaneous Approach (ICD-10-PCS; 2022-10-04)
PROC: 02H633Z Insertion of Infusion Device into Right Atrium, Percutaneous Approach (ICD-10-PCS; 2022-10-04)
PROC: 5A1D70Z Performance of Urinary Filtration, Intermittent, Less than 6 Hours Per Day (ICD-10-PCS; 2022-10-05)
DX: T82.7XXA Infection and inflammatory reaction due to other cardiac and vascular devices, implants and grafts, initial encounter (principal); A41.89 Other specified sepsis; N18.6 End stage renal disease; L02.414 Cutaneous abscess of left upper limb; I24.8 Other forms of acute ischemic heart disease; I13.2 Hypertensive heart and chronic kidney disease with heart failure and with stage 5 chronic kidney disease, or end stage renal disease; I50.32 Chronic diastolic (congestive) heart failure; I48.19 Other persistent atrial fibrillation; T82.838A Hemorrhage due to vascular prosthetic devices, implants and grafts, initial encounter; J44.9 Chronic obstructive pulmonary disease, unspecified; M10.9 Gout, unspecified; H91.90 Unspecified hearing loss, unspecified ear; J30.9 Allergic rhinitis, unspecified; D64.9 Anemia, unspecified; D72.829 Elevated white blood cell count, unspecified; R50.9 Fever, unspecified; Z99.2 Dependence on renal dialysis; Y83.8 Other surgical procedures as the cause of abnormal reaction of the patient, or of later complication, without mention of misadventure at the time of the procedure; I45.10 Unspecified right bundle-branch block; R33.9 Retention of urine, unspecified; N40.1 Benign prostatic hyperplasia with lower urinary tract symptoms; R33.8 Other retention of urine; I35.0 Nonrheumatic aortic (valve) stenosis; Z22.321 Carrier or suspected carrier of Methicillin susceptible Staphylococcus aureus
CPT/HCPCS: 0241U-QW; 36415; 71045-TC-FY; 76000-TC-FY; 76856-TC; 80048; 80053; 81003; 82550; 82553; 82803; 82962; 83605; 83735; 84100; 84484; 85025; 85027; 85610; 85730; 86803; 86850; 86900; 86901; 87040; 87086; 87186; 87340; 88304-TC; 93005; 93010; 93306-TC; 94760; 97116-GP; 97161-GP; 99285-25; C1750; G0480; J1644; Q5106

== ENCOUNTER 2022-10-08 12:48 | Emergency (ER) | payer OTHER, MEDICARE ==
[2022-10-08 13:08] VITALS: BP 155/72; PULSE 85; RESP 18; TEMP 97.8; BMI 23.1
[2022-10-08] MEDS ORDERED: LIDOCAINE HCL 2% JELLY 10 ML CARTRIDGE UR ONE (13:08)
[2022-10-08] MEDS ORDERED: LIDOCAINE HCL 2% JELLY 10 ML CARTRIDGE ONE (13:09)
[2022-10-08 13:47] LABS: EPITHELIAL CELLS RARE /hpf
== END 2022-10-08 13:45 | disposition home or self-care (01) ==
LOC: FER 12:48
DX: R33.9 Retention of urine, unspecified (principal)
CPT/HCPCS: 81003; 81015; 87086; 99283-25

== ENCOUNTER 2022-10-31 06:46 | Inpatient (IN) | payer OTHER, MEDICARE ==
[2022-10-31] MEDS ORDERED: NITROGLYCERIN SUBLINGUAL 1/150 0.4 MG TAB SL ONE (07:01)
[2022-10-31] MEDS ORDERED: NITROGLYCERIN SUBLINGUAL 1/150 0.4 MG TAB ONE (07:03)
[2022-10-31 07:09] LABS: VENOUS O2 SATURATION 94.7 % (70-80); VENOUS PCO2 36.5 mmHg (38-52); VENOUS PH 7.372 (7.310-7.410)
[2022-10-31 07:28] LABS: BASO % 0.7 % (0-2.0); EOS % 3.6 % (0-4.5); HEMATOCRIT 28.7 % (35.4-49); HEMOGLOBIN 9.4 GM/dL (11.7-16.9); LYMPH % 13.1 % (8-40); MCH 31.9 pg (25.7-33.7); MCHC 32.6 g/dl (32.0-35.9); MEAN CELL VOLUME 97.7 fl (80-96); MEAN PLT VOLUME 7.9 fl (7.5-11.1); MONO % 5.4 % (3.8-10.2); NEUT % 77.2 % (42.8-82.8); PLATELET COUNT 241 10^3/uL (134-434); RBC 2.94 M/mm3 (4.00-5.60); RDW 14.9 % (11.9-15.9); WHITE BLOOD COUNT 10.7 K/mm3 (4.0-10.0)
[2022-10-31 07:31] LABS: CALCIUM 9.3 mg/dL (8.5-10.1)
[2022-10-31 07:33] LABS: ALBUMIN 2.6 g/dl (3.4-5.0); BLOOD UREA NITROGEN 57.2 mg/dL (7-18); CHLORIDE 108 mmol/L (98-107); CO2 23 mmol/L (21-32); GLUCOSE,RANDOM 129 mg/dL (74-106); MAGNESIUM 2.1 mg/dL (1.8-2.4); SODIUM 140 mmol/L (136-145)
[2022-10-31 07:35] LABS: SGOT/AST 24 U/L (15-37)
[2022-10-31 07:37] LABS: BILIRUBIN,TOTAL 0.5 mg/dL (0.2-1); INR 1.14 (0.83-1.09); PHOSPHOROUS 4.1 mg/dL (2.5-4.9); PROTHROMBIN TIME (PATIENT) 13.2 SEC (9.7-13.0); TOT PROT 6.1 g/dl (6.4-8.2)
[2022-10-31 07:38] LABS: ALK PHOS 92 U/L (45-117)
[2022-10-31] MEDS ORDERED: FUROSEMIDE 40 MG TABLET (FP) PO ONE (07:39)
[2022-10-31 07:40] LABS: ACTIVATED PTT 29.3 SECONDS (25.2-36.5)
[2022-10-31] MEDS ORDERED: SODIUM CHLORIDE 250 ML IV PRN (07:44)
[2022-10-31] MEDS ORDERED: FUROSEMIDE 100 MG/10 ML INJECTABLE VIAL IVPB ONE (07:47)
[2022-10-31] MEDS ORDERED: FUROSEMIDE 40 MG/4 ML INJECTABLE VIAL ONE (07:49)
[2022-10-31 08:00] LABS: SGPT/ALT 13 U/L (13-61)
[2022-10-31 08:14] LABS: ANION GAP 8 MMOL/L (8-16); CREATININE 8.5 mg/dL (0.55-1.3)
[2022-10-31] MEDS: MUPIROCIN 2% TOPICAL OINTMENT FOR DECOLONIZATION NS SCH ×2 (11:00→21:34)
[2022-10-31] MEDS ORDERED: EPOETIN ALFA-EPBX 10,000 UNIT/ML VIAL IVPUSH ONE (12:00)
[2022-10-31] MEDS ORDERED: VANCOMYCIN IV SCH (16:00)
[2022-10-31] MEDS ORDERED: VANCOMYCIN 1 GM/200 ML PREMIX BAG (RESTRICTED TO ID ONLY) IVPB ONE (16:00)
[2022-10-31] MEDS ORDERED: PATIENT'S OWN MEDICATION (NON-FORMULARY) (Vancomycin 1 Gm Premix - 1 GM) IVPB SCH (16:07)
[2022-10-31] MEDS ORDERED: VANCOMYCIN 1 GM/200 ML PREMIX BAG (RESTRICTED TO ID ONLY) IVPB SCH (16:08)
[2022-10-31] MEDS: PANTOPRAZOLE SODIUM 40 MG VIAL IVPUSH SCH (16:14)
[2022-10-31 17:09] LABS: BASO % 0.2 % (0-2.0); EOS % 0.1 % (0-4.5); HEMATOCRIT 20.1 % (35.4-49); LYMPH % 7.6 % (8-40); MCHC 32.4 g/dl (32.0-35.9); MEAN CELL VOLUME 95.8 fl (80-96); MEAN PLT VOLUME 7.4 fl (7.5-11.1); MONO % 4.8 % (3.8-10.2); NEUT % 87.3 % (42.8-82.8); PLATELET COUNT 158 10^3/uL (134-434); RDW 14.9 % (11.9-15.9); WHITE BLOOD COUNT 6.3 K/mm3 (4.0-10.0)
[2022-10-31] MEDS: SEVELAMER CARBONATE 800 MG TAB (FP) PO SCH (17:11)
[2022-10-31 17:12] LABS: HEMOGLOBIN 6.5 GM/dL (11.7-16.9)
[2022-10-31 17:52] LABS: CALCIUM 8.3 mg/dL (8.5-10.1)
[2022-10-31 17:54] LABS: ALBUMIN 2.6 g/dl (3.4-5.0)
[2022-10-31 17:56] LABS: CREATININE 3.7 mg/dL (0.55-1.3)
[2022-10-31 17:58] LABS: BILIRUBIN,TOTAL 0.4 mg/dL (0.2-1); TOT PROT 6.2 g/dl (6.4-8.2)
[2022-10-31 18:09] LABS: BLOOD UREA NITROGEN 24.7 mg/dL (7-18)
[2022-10-31 18:22] LABS: HEMATOCRIT 26.9 % (35.4-49); HEMOGLOBIN 8.7 GM/dL (11.7-16.9); MCH 30.3 pg (25.7-33.7); MCHC 32.4 g/dl (32.0-35.9); MEAN CELL VOLUME 93.6 fl (80-96); MEAN PLT VOLUME 7.6 fl (7.5-11.1); PLATELET COUNT 206 10^3/uL (134-434); RBC 2.88 M/mm3 (4.00-5.60); WHITE BLOOD COUNT 8.3 K/mm3 (4.0-10.0)
[2022-10-31] MEDS: TAMSULOSIN HCL 0.4 MG CAP PO SCH (21:35)
[2022-10-31] MEDS: CHLORHEXIDINE GLUCONATE 4% CLEANSER FOR DECOLONIZATION TP SCH (21:35)
[2022-10-31] MEDS: APIXABAN 2.5 MG TABLET PO SCH (21:35)
[2022-10-31] MEDS ORDERED: HEPARIN NA (PORCINE) 5,000 UNITS/ML 1ML VIAL SQ SCH (22:00)
[2022-10-31] MEDS: METOPROLOL TARTRATE 25 MG TABLET (FP) PO SCH (22:13)
[2022-11-01 07:41] LABS: BASO % 0.6 % (0-2.0); HEMATOCRIT 26.9 % (35.4-49); HEMOGLOBIN 8.7 GM/dL (11.7-16.9); LYMPH % 16.3 % (8-40); MCH 30.6 pg (25.7-33.7); MCHC 32.3 g/dl (32.0-35.9); MEAN CELL VOLUME 94.8 fl (80-96); MONO % 7.4 % (3.8-10.2); NEUT % 73.7 % (42.8-82.8); PLATELET COUNT 202 10^3/uL (134-434); RBC 2.84 M/mm3 (4.00-5.60); RDW 15.1 % (11.9-15.9); WHITE BLOOD COUNT 9.8 K/mm3 (4.0-10.0)
[2022-11-01 08:00] LABS: CHLORIDE 106 mmol/L (98-107); SODIUM 142 mmol/L (136-145)
[2022-11-01 08:03] LABS: ALBUMIN 2.3 g/dl (3.4-5.0); ANION GAP 6 MMOL/L (8-16); BLOOD UREA NITROGEN 41.4 mg/dL (7-18); CALCIUM 8.4 mg/dL (8.5-10.1); CO2 31 mmol/L (21-32); GLUCOSE,RANDOM 84 mg/dL (74-106)
[2022-11-01 08:06] LABS: CREATININE 6.2 mg/dL (0.55-1.3); SGOT/AST 14 U/L (15-37); SGPT/ALT 11 U/L (13-61)
[2022-11-01 08:08] LABS: BILIRUBIN,TOTAL 0.4 mg/dL (0.2-1); TOT PROT 5.4 g/dl (6.4-8.2)
[2022-11-01 08:10] LABS: ALK PHOS 79 U/L (45-117)
[2022-11-01] MEDS ORDERED: SODIUM CHLORIDE 250 ML IV PRN (08:22)
[2022-11-01] MEDS: SEVELAMER CARBONATE 800 MG TAB (FP) PO SCH ×2 (08:53→12:45)
[2022-11-01 09:31] LABS: CHOLESTEROL 145 mg/dL (50-200); TRIGLYCERIDES 96 mg/dL (0-150)
[2022-11-01 09:32] LABS: LDL CHOLESTEROL (ONLY SJRH) 73 mg/dL (5-100)
[2022-11-01 09:35] LABS: HDL CHOLESTEROL 57 mg/dL (40-60)
[2022-11-01] MEDS: PANTOPRAZOLE SODIUM 40 MG VIAL IVPUSH SCH (09:52)
[2022-11-01] MEDS: APIXABAN 2.5 MG TABLET PO SCH ×2 (09:53→21:21)
[2022-11-01] MEDS: MUPIROCIN 2% TOPICAL OINTMENT FOR DECOLONIZATION NS SCH ×2 (09:53→21:21)
[2022-11-01 09:59] LABS: N-TERMINAL BNP > 175000.0 pg/ml (5-450)
[2022-11-01] MEDS: VANCOMYCIN 1 GM/200 ML PREMIX BAG (RESTRICTED TO ID ONLY) IVPB SCH (10:00)
[2022-11-01] MEDS ORDERED: EPOETIN ALFA-EPBX 10,000 UNIT/ML VIAL SQ ONE (10:00)
[2022-11-01] MEDS ORDERED: SEVELAMER CARBONATE 800 MG TAB (FP) PO SCH (10:00)
[2022-11-01] MEDS: METOPROLOL TARTRATE 25 MG TABLET (FP) PO SCH ×2 (11:00→21:22)
[2022-11-01] MEDS ORDERED: ALBUTEROL SO4 2.5/IPRATROPIUM 0.5 INH SOL 3 ML VIAL.NEB. NEB ONE (13:30)
[2022-11-01] MEDS ORDERED: BENZOCAINE/MENTH/CETYLPYRD CL 1 EACH LOZENGE MM PRN (14:01)
[2022-11-01] MEDS: CALCIUM ACETATE 667 MG CAPSULE (FP) PO SCH (17:14)
[2022-11-01] MEDS: TAMSULOSIN HCL 0.4 MG CAP PO SCH (21:21)
[2022-11-01] MEDS: CHLORHEXIDINE GLUCONATE 4% CLEANSER FOR DECOLONIZATION TP SCH (21:22)
[2022-11-01] MEDS: ATORVASTATIN CA 10 MG TABLET (FP) PO SCH (21:22)
[2022-11-02 07:27] LABS: HEMOGLOBIN 9.1 GM/dL (11.7-16.9); MCH 30.7 pg (25.7-33.7); MCHC 32.4 g/dl (32.0-35.9); MEAN CELL VOLUME 94.8 fl (80-96); PLATELET COUNT 203 10^3/uL (134-434); RBC 2.95 M/mm3 (4.00-5.60); RDW 14.9 % (11.9-15.9); WHITE BLOOD COUNT 9.8 K/mm3 (4.0-10.0)
[2022-11-02 07:50] LABS: ALBUMIN 2.3 g/dl (3.4-5.0); BLOOD UREA NITROGEN 34.2 mg/dL (7-18); MAGNESIUM 1.9 mg/dL (1.8-2.4)
[2022-11-02 07:52] LABS: CREATININE 5.2 mg/dL (0.55-1.3)
[2022-11-02 07:53] LABS: TOT PROT 5.5 g/dl (6.4-8.2)
[2022-11-02 07:54] LABS: BILIRUBIN,TOTAL 0.5 mg/dL (0.2-1)
[2022-11-02 07:59] LABS: CALCIUM 9.8 mg/dL (8.5-10.1)
[2022-11-02] MEDS: METOPROLOL TARTRATE 25 MG TABLET (FP) PO SCH ×2 (09:22→21:22)
[2022-11-02] MEDS: APIXABAN 2.5 MG TABLET PO SCH ×2 (09:22→21:21)
[2022-11-02] MEDS: CALCIUM ACETATE 667 MG CAPSULE (FP) PO SCH ×3 (09:22→17:59)
[2022-11-02] MEDS: PANTOPRAZOLE SODIUM 40 MG VIAL IVPUSH SCH (09:22)
[2022-11-02] MEDS: MUPIROCIN 2% TOPICAL OINTMENT FOR DECOLONIZATION NS SCH ×2 (09:23→21:20)
[2022-11-02] MEDS: VANCOMYCIN 1 GM/200 ML PREMIX BAG (RESTRICTED TO ID ONLY) IVPB SCH (09:24)
[2022-11-02] MEDS: ALBUTEROL SO4 2.5/IPRATROPIUM 0.5 INH SOL 3 ML VIAL.NEB. NEB SCH ×4 (12:00→20:41)
[2022-11-02] MEDS: BUDESONIDE/FORMETEROL FUMARATE 80/4.5 mcg INHALER IH SCH ×2 (12:44→21:25)
[2022-11-02] MEDS ORDERED: FUROSEMIDE 40 MG/4 ML INJECTABLE VIAL IVPUSH ONE (13:50)
[2022-11-02 15:32] VITALS: BMI 26.6
[2022-11-02 18:10] LABS: EPI CELLS 33 /uL (0-25.1); HYALINE CASTS 41 /uL (0-3.1); PH,URINE 7.5 (5.0-8.0); URINE APPEARANCE TURBID; URINE BACTERIA 4194 /uL (0-1359); URINE BILIRUBIN NEGATIVE (NEGATIVE); URINE COLOR YELLOW; URINE GLUCOSE (UA) NEGATIVE (NEGATIVE); URINE KETONE NEGATIVE (NEGATIVE); URINE LEUK ESTERASE 3+ (NEGATIVE); URINE NITRITE NEGATIVE (NEGATIVE); URINE PROTEIN 3+ (NEGATIVE); URINE UROBILINOGEN 0.2 mg/dL (0.2-1.0); URINE WBC 10918 /uL (0-25.8)
[2022-11-02 18:25] LABS: URINE RBC 314.8 /uL (0-23.9)
[2022-11-02] MEDS: CHLORHEXIDINE GLUCONATE 4% CLEANSER FOR DECOLONIZATION TP SCH (21:20)
[2022-11-02] MEDS: MELATONIN 5 MG TABLETS PO PRN (21:21)
[2022-11-02] MEDS: TAMSULOSIN HCL 0.4 MG CAP PO SCH (21:21)
[2022-11-02] MEDS: ATORVASTATIN CA 10 MG TABLET (FP) PO SCH (21:22)
[2022-11-03] MEDS: ALBUTEROL SO4 2.5/IPRATROPIUM 0.5 INH SOL 3 ML VIAL.NEB. NEB SCH ×4 (07:15→20:27)
[2022-11-03] MEDS ORDERED: SODIUM CHLORIDE 250 ML IV PRN ×2 (08:06→15:29)
[2022-11-03] MEDS: CALCIUM ACETATE 667 MG CAPSULE (FP) PO SCH ×3 (08:15→18:17)
[2022-11-03] MEDS: ALBUMIN HUMAN 25% 12.5 GM/50 ML VIAL IV SCH ×4 (08:15→10:18)
[2022-11-03] MEDS ORDERED: EPOETIN ALFA-EPBX 10,000 UNIT/ML VIAL SQ ONE (08:15)
[2022-11-03 08:56] LABS: HEMOGLOBIN 8.9 GM/dL (11.7-16.9); MEAN CELL VOLUME 96.9 fl (80-96); MEAN PLT VOLUME 8.3 fl (7.5-11.1); PLATELET COUNT 224 10^3/uL (134-434); RBC 2.79 M/mm3 (4.00-5.60); RDW 14.6 % (11.9-15.9); WHITE BLOOD COUNT 9.7 K/mm3 (4.0-10.0)
[2022-11-03 09:19] LABS: BLOOD UREA NITROGEN 50.8 mg/dL (7-18); CALCIUM 10.1 mg/dL (8.5-10.1)
[2022-11-03] MEDS: PANTOPRAZOLE SODIUM 40 MG VIAL IVPUSH SCH (12:02)
[2022-11-03] MEDS: MUPIROCIN 2% TOPICAL OINTMENT FOR DECOLONIZATION NS SCH ×2 (12:02→21:04)
[2022-11-03] MEDS: METOPROLOL TARTRATE 25 MG TABLET (FP) PO SCH ×3 (12:02→21:04)
[2022-11-03] MEDS: BUDESONIDE/FORMETEROL FUMARATE 80/4.5 mcg INHALER IH SCH ×2 (12:03→21:05)
[2022-11-03] MEDS: APIXABAN 2.5 MG TABLET PO SCH ×3 (12:03→21:04)
[2022-11-03] MEDS: MELATONIN 5 MG TABLETS PO PRN (20:50)
[2022-11-03] MEDS: TAMSULOSIN HCL 0.4 MG CAP PO SCH ×2 (20:50→21:04)
[2022-11-03] MEDS: ATORVASTATIN CA 10 MG TABLET (FP) PO SCH ×2 (20:51→21:04)
[2022-11-03] MEDS: CHLORHEXIDINE GLUCONATE 4% CLEANSER FOR DECOLONIZATION TP SCH (21:04)
[2022-11-04] MEDS ORDERED: BENZOCAINE/MENTH/CETYLPYRD CL 1 EACH LOZENGE MM PRN (04:15)
[2022-11-04] MEDS ORDERED: CALCIUM ACETATE PO SCH (06:00)
[2022-11-04] MEDS: ALBUTEROL SO4 2.5/IPRATROPIUM 0.5 INH SOL 3 ML VIAL.NEB. NEB SCH ×4 (08:09→21:37)
[2022-11-04 08:31] LABS: BASO % 0.6 % (0-2.0); EOS % 6.1 % (0-4.5); HEMATOCRIT 27.4 % (35.4-49); HEMOGLOBIN 8.9 GM/dL (11.7-16.9); LYMPH % 12.5 % (8-40); MCHC 32.5 g/dl (32.0-35.9); MEAN CELL VOLUME 95.2 fl (80-96); MEAN PLT VOLUME 8.2 fl (7.5-11.1); MONO % 8.1 % (3.8-10.2); NEUT % 72.7 % (42.8-82.8); PLATELET COUNT 198 10^3/uL (134-434); RBC 2.88 M/mm3 (4.00-5.60); RDW 15.4 % (11.9-15.9); WHITE BLOOD COUNT 9.3 K/mm3 (4.0-10.0)
[2022-11-04 08:39] LABS: PHOSPHOROUS 3.6 mg/dL (2.5-4.9)
[2022-11-04 08:40] LABS: ALBUMIN 2.7 g/dl (3.4-5.0)
[2022-11-04 08:41] LABS: BILIRUBIN,TOTAL 0.7 mg/dL (0.2-1); BLOOD UREA NITROGEN 34.1 mg/dL (7-18); TOT PROT 5.6 g/dl (6.4-8.2)
[2022-11-04 08:42] LABS: CALCIUM 10.2 mg/dL (8.5-10.1)
[2022-11-04 08:43] LABS: CREATININE 5.7 mg/dL (0.55-1.3); MAGNESIUM 1.9 mg/dL (1.8-2.4)
[2022-11-04] MEDS: BUDESONIDE/FORMETEROL FUMARATE 80/4.5 mcg INHALER IH SCH ×2 (10:00→21:25)
[2022-11-04] MEDS ORDERED: MUPIROCIN 2% TOPICAL OINTMENT FOR DECOLONIZATION NS SCH (10:00)
[2022-11-04] MEDS: APIXABAN 2.5 MG TABLET PO SCH ×2 (12:05→21:24)
[2022-11-04] MEDS: TAMSULOSIN HCL 0.4 MG CAP PO SCH (12:06)
[2022-11-04] MEDS: METOPROLOL TARTRATE 25 MG TABLET (FP) PO SCH ×2 (12:06→21:25)
[2022-11-04] MEDS: PANTOPRAZOLE SODIUM 40 MG VIAL IVPUSH SCH (12:06)
[2022-11-04] MEDS ORDERED: EPOETIN ALFA-EPBX 10,000 UNIT/ML VIAL IVPUSH ONE (14:45)
[2022-11-04 21:08] LABS: ANTIGLOMERULAR BASEMENT MEN.AB <0.2 units (0.0-0.9)
[2022-11-04] MEDS: ATORVASTATIN CA 10 MG TABLET (FP) PO SCH (21:24)
[2022-11-04] MEDS: MELATONIN 1 MG TABLET PO SCH (21:25)
[2022-11-05] MEDS: CEFAZOLIN 1 GM in DEXTROSE 5%-WATER - 50 ML IVPB SCH (06:17)
[2022-11-05] MEDS: ALBUTEROL SO4 2.5/IPRATROPIUM 0.5 INH SOL 3 ML VIAL.NEB. NEB SCH ×5 (07:48→20:17)
[2022-11-05 08:42] LABS: BASO % 0.6 % (0-2.0); EOS % 5.5 % (0-4.5); HEMATOCRIT 27.6 % (35.4-49); HEMOGLOBIN 9.2 GM/dL (11.7-16.9); LYMPH % 13.2 % (8-40); MCH 32.2 pg (25.7-33.7); MCHC 33.2 g/dl (32.0-35.9); MEAN CELL VOLUME 96.7 fl (80-96); MEAN PLT VOLUME 8.3 fl (7.5-11.1); MONO % 8.2 % (3.8-10.2); NEUT % 72.5 % (42.8-82.8); PLATELET COUNT 204 10^3/uL (134-434); RBC 2.85 M/mm3 (4.00-5.60); RDW 15.6 % (11.9-15.9); WHITE BLOOD COUNT 9.4 K/mm3 (4.0-10.0)
[2022-11-05] MEDS: TAMSULOSIN HCL 0.4 MG CAP PO SCH (08:42)
[2022-11-05 09:15] LABS: BLOOD UREA NITROGEN 23.6 mg/dL (7-18)
[2022-11-05 09:16] LABS: CALCIUM 10.3 mg/dL (8.5-10.1)
[2022-11-05 09:20] LABS: CREATININE 4.7 mg/dL (0.55-1.3)
[2022-11-05] MEDS: FUROSEMIDE 40 MG/4 ML INJECTABLE VIAL IVPUSH SCH (10:20)
[2022-11-05] MEDS: PANTOPRAZOLE SODIUM 40 MG VIAL IVPUSH SCH (10:20)
[2022-11-05] MEDS: BUDESONIDE/FORMETEROL FUMARATE 80/4.5 mcg INHALER IH SCH ×2 (10:20→21:28)
[2022-11-05] MEDS: METOPROLOL TARTRATE 25 MG TABLET (FP) PO SCH ×2 (10:20→21:26)
[2022-11-05] MEDS: APIXABAN 2.5 MG TABLET PO SCH ×2 (10:20→21:26)
[2022-11-05] MEDS: MELATONIN 1 MG TABLET PO SCH (21:26)
[2022-11-05] MEDS: ATORVASTATIN CA 10 MG TABLET (FP) PO SCH (21:26)
[2022-11-06] MEDS: CEFAZOLIN 1 GM in DEXTROSE 5%-WATER - 50 ML IVPB SCH ×2 (05:29)
[2022-11-06] MEDS: ALBUTEROL SO4 2.5/IPRATROPIUM 0.5 INH SOL 3 ML VIAL.NEB. NEB SCH ×4 (07:28→21:40)
[2022-11-06] MEDS: TAMSULOSIN HCL 0.4 MG CAP PO SCH (08:07)
[2022-11-06] MEDS: FUROSEMIDE 40 MG/4 ML INJECTABLE VIAL IVPUSH SCH (09:41)
[2022-11-06] MEDS: BUDESONIDE/FORMETEROL FUMARATE 80/4.5 mcg INHALER IH SCH ×2 (09:42→21:50)
[2022-11-06] MEDS: APIXABAN 2.5 MG TABLET PO SCH ×2 (09:42→21:37)
[2022-11-06] MEDS: METOPROLOL TARTRATE 25 MG TABLET (FP) PO SCH ×2 (09:42→21:37)
[2022-11-06] MEDS: PANTOPRAZOLE SODIUM 40 MG VIAL IVPUSH SCH (09:42)
[2022-11-06] MEDS: ATORVASTATIN CA 10 MG TABLET (FP) PO SCH (21:37)
[2022-11-06] MEDS: MELATONIN 1 MG TABLET PO SCH (21:42)
[2022-11-07] MEDS: CEFAZOLIN 1 GM in DEXTROSE 5%-WATER - 50 ML IVPB SCH (03:18)
[2022-11-07] MEDS: ALBUTEROL SO4 2.5/IPRATROPIUM 0.5 INH SOL 3 ML VIAL.NEB. NEB SCH ×4 (07:10→20:05)
[2022-11-07] MEDS ORDERED: SODIUM CHLORIDE 250 ML IV PRN ×2 (07:42→13:46)
[2022-11-07 08:00] LABS: BASO % 0.6 % (0-2.0); EOS % 7.9 % (0-4.5); HEMATOCRIT 26.6 % (35.4-49); HEMOGLOBIN 8.6 GM/dL (11.7-16.9); MCH 30.6 pg (25.7-33.7); MCHC 32.3 g/dl (32.0-35.9); MEAN CELL VOLUME 94.5 fl (80-96); MEAN PLT VOLUME 8.1 fl (7.5-11.1); MONO % 7.2 % (3.8-10.2); NEUT % 71.3 % (42.8-82.8); PLATELET COUNT 183 10^3/uL (134-434); RBC 2.82 M/mm3 (4.00-5.60); RDW 15.9 % (11.9-15.9); WHITE BLOOD COUNT 9.6 K/mm3 (4.0-10.0)
[2022-11-07] MEDS: TAMSULOSIN HCL 0.4 MG CAP PO SCH (08:05)
[2022-11-07 08:20] LABS: CHLORIDE 102 mmol/L (98-107); SODIUM 138 mmol/L (136-145)
[2022-11-07] MEDS ORDERED: EPOETIN ALFA-EPBX 4,000 UNIT/ML VIAL IVPUSH ONE (08:30)
[2022-11-07 08:34] LABS: CALCIUM 9.8 mg/dL (8.5-10.1)
[2022-11-07 08:35] LABS: ANION GAP 11 MMOL/L (8-16); CO2 25 mmol/L (21-32); GLUCOSE,RANDOM 85 mg/dL (74-106)
[2022-11-07 08:38] LABS: PHOSPHOROUS 5.9 mg/dL (2.5-4.9)
[2022-11-07 08:43] LABS: BLOOD UREA NITROGEN 55.7 mg/dL (7-18); CREATININE 8.7 mg/dL (0.55-1.3)
[2022-11-07] MEDS: METOPROLOL TARTRATE 25 MG TABLET (FP) PO SCH ×2 (13:39→21:51)
[2022-11-07] MEDS: PANTOPRAZOLE 40 MG TABLET PO SCH (13:39)
[2022-11-07] MEDS: BUDESONIDE/FORMETEROL FUMARATE 80/4.5 mcg INHALER IH SCH ×2 (13:40→21:54)
[2022-11-07] MEDS: PANTOPRAZOLE SODIUM 40 MG VIAL IVPUSH SCH (13:41)
[2022-11-07] MEDS ORDERED: BENZOCAINE/MENTH/CETYLPYRD CL 1 EACH LOZENGE MM PRN (13:46)
[2022-11-07 16:08] LABS: ATYPICAL pANCA <1:20 titer (Neg:<1:20); C-ANCA <1:20 titer (Neg:<1:20)
[2022-11-07] MEDS ORDERED: MELATONIN 1 MG TABLET PO SCH (22:00)
[2022-11-07] MEDS ORDERED: ATORVASTATIN CA 10 MG TABLET (FP) PO SCH (22:00)
[2022-11-08] MEDS: ALBUTEROL SO4 2.5/IPRATROPIUM 0.5 INH SOL 3 ML VIAL.NEB. NEB SCH (07:46)
[2022-11-08 08:00] VITALS: RESP 20
[2022-11-08] MEDS ORDERED: TAMSULOSIN HCL 0.4 MG CAP PO SCH (08:30)
[2022-11-08] MEDS: METOPROLOL TARTRATE 25 MG TABLET (FP) PO SCH (09:38)
[2022-11-08] MEDS: PANTOPRAZOLE 40 MG TABLET PO SCH (09:38)
[2022-11-08] MEDS: BUDESONIDE/FORMETEROL FUMARATE 80/4.5 mcg INHALER IH SCH (09:39)
[2022-11-08 09:43] VITALS: BP 132/40; PULSE 97; TEMP 98
[2022-11-08] MEDS ORDERED: CEFAZOLIN 1 GM in DEXTROSE 5%-WATER - 50 ML IVPB SCH (10:00)
[2022-11-08] MEDS ORDERED: CEPHALEXIN MONOHYDRATE 250 MG CAPSULE (FP) PO ONE (10:08)
[2022-11-08] MEDS ORDERED: CEPHALEXIN MONOHYDRATE 500 MG CAPSULE (UD) PO ONE (10:30)
== END 2022-11-08 11:13 | disposition home or self-care (01) | DRG 291 ==
LOC: JER 06:46 → JERBED 07:50 → JICU 09:00 → J4W 11-03 13:07 → J8W 11-07 12:47
PROVIDERS: ADMIT Internal Medicine Pulmonary Disease
PROC: 5A1D70Z Performance of Urinary Filtration, Intermittent, Less than 6 Hours Per Day (ICD-10-PCS; principal; 2022-10-31)
PROC: 5A1D70Z Performance of Urinary Filtration, Intermittent, Less than 6 Hours Per Day (ICD-10-PCS; 2022-11-01)
PROC: 5A1D70Z Performance of Urinary Filtration, Intermittent, Less than 6 Hours Per Day (ICD-10-PCS; 2022-11-03)
PROC: 5A1D70Z Performance of Urinary Filtration, Intermittent, Less than 6 Hours Per Day (ICD-10-PCS; 2022-11-04)
PROC: 5A1D70Z Performance of Urinary Filtration, Intermittent, Less than 6 Hours Per Day (ICD-10-PCS; 2022-11-07)
DX: I13.2 Hypertensive heart and chronic kidney disease with heart failure and with stage 5 chronic kidney disease, or end stage renal disease (principal); I50.33 Acute on chronic diastolic (congestive) heart failure; J96.01 Acute respiratory failure with hypoxia; N18.6 End stage renal disease; J81.0 Acute pulmonary edema; I24.8 Other forms of acute ischemic heart disease; R78.81 Bacteremia; I38 Endocarditis, valve unspecified; I48.0 Paroxysmal atrial fibrillation; R00.0 Tachycardia, unspecified; D64.9 Anemia, unspecified; I45.10 Unspecified right bundle-branch block; E87.70 Fluid overload, unspecified; J44.9 Chronic obstructive pulmonary disease, unspecified; N40.1 Benign prostatic hyperplasia with lower urinary tract symptoms; R33.8 Other retention of urine; K57.90 Diverticulosis of intestine, part unspecified, without perforation or abscess without bleeding; E83.52 Hypercalcemia; M10.9 Gout, unspecified; D72.829 Elevated white blood cell count, unspecified; I35.0 Nonrheumatic aortic (valve) stenosis; F41.9 Anxiety disorder, unspecified; Z99.2 Dependence on renal dialysis
CPT/HCPCS: 0241U-QW; 36415; 71045-TC-FY; 80048; 80053; 80061; 81003; 82310; 82803; 82962; 83036; 83516; 83520; 83735; 83880; 83970; 84100; 84439; 84443; 84484; 85025; 85027; 85610; 85730; 86038; 86256; 86803; 86850; 86900; 86901; 87040; 87340; 93005; 93010; 93306-TC; 94640; 94660; 94761; 97116-GP; 97162-GP; 99291; G0480; P9047; Q5106

== ENCOUNTER 2022-12-02 04:31 | Day surgery (SDC) | payer OTHER, MEDICARE ==
[2022-11-25 14:14] VITALS: BMI 26.6
[2022-12-02] MEDS ORDERED: POVIDONE-IODINE OINTMENT 10% - 28.4 GM TUBE ONE (14:21)
[2022-12-02] MEDS ORDERED: LIDOCAINE HCL 1%, 10 MG/ML (10ML VIAL) MDV ONE (14:22)
[2022-12-02] MEDS ORDERED: ROPIVACAINE HCL 0.5% 30ML VIAL ONE (14:40)
[2022-12-02] MEDS ORDERED: DEXMEDETOMIDINE HCL 200 MCG/2 ML IVPB ONE (15:10)
[2022-12-02] MEDS ORDERED: ceFAZolin SODIUM 1 GM VIAL IVPB ONE (15:45)
[2022-12-02] MEDS ORDERED: LIDOCAINE HCL 1%, 10 MG/ML (20ML VIAL) INF ONE ×2 (15:53)
[2022-12-02] MEDS ORDERED: ONDANSETRON 4 MG/2 ML VIAL IVPUSH PRN (17:54)
[2022-12-02] MEDS ORDERED: ALBUTEROL SO4 0.083% IH SOL 2.5 MG/3 ML VIAL.NEB. NEB ONE ×2 (18:30→19:26)
[2022-12-02 19:11] VITALS: TEMP 97
[2022-12-02 19:29] VITALS: BP 98/55; PULSE 92
[2022-12-02 19:31] VITALS: RESP 27
== END 2022-12-02 19:44 | disposition home or self-care (01) ==
LOC: JASU-SURG 04:31
PROVIDERS: ATTEND Surgery
PROC: 03L80ZZ Occlusion of Left Brachial Artery, Open Approach (ICD-10-PCS; 2022-12-02)
PROC: 03180JD Bypass Left Brachial Artery to Upper Arm Vein with Synthetic Substitute, Open Approach (ICD-10-PCS; principal; 2022-12-02 15:30)
DX: I12.0 Hypertensive chronic kidney disease with stage 5 chronic kidney disease or end stage renal disease (principal); N18.6 End stage renal disease; Z99.2 Dependence on renal dialysis
CPT/HCPCS: 36415; 84132; 94760; C1768

== ENCOUNTER 2022-12-11 11:29 | Inpatient (IN) | payer OTHER, MEDICARE ==
[2022-12-11] MEDS ORDERED: SODIUM CHLORIDE 500 ML IV STA (12:01)
[2022-12-11 12:20] LABS: BASO % 0.6 % (0-2.0); EOS % 0.6 % (0-4.5); HEMATOCRIT 31.5 % (35.4-49); HEMOGLOBIN 10.4 GM/dL (11.7-16.9); LYMPH % 15.2 % (8-40); MCH 32.4 pg (25.7-33.7); MCHC 33.1 g/dl (32.0-35.9); MEAN CELL VOLUME 97.9 fl (80-96); MEAN PLT VOLUME 9.6 fl (7.5-11.1); MONO % 7.5 % (3.8-10.2); NEUT % 76.1 % (42.8-82.8); PLATELET COUNT 138 10^3/uL (134-434); RBC 3.22 M/mm3 (4.00-5.60); RDW 19.4 % (11.9-15.9); VENOUS BASE EXCESS -4.8 mmol/L (-2-2); VENOUS O2 SATURATION 56.9 % (70-80); VENOUS PCO2 35.2 mmHg (38-52); VENOUS PH 7.368 (7.310-7.410); WHITE BLOOD COUNT 10.4 K/mm3 (4.0-10.0)
[2022-12-11 12:37] LABS: CHLORIDE 103 mmol/L (98-107); SODIUM 137 mmol/L (136-145)
[2022-12-11 12:39] LABS: CALCIUM 8.7 mg/dL (8.5-10.1)
[2022-12-11 12:40] LABS: ALBUMIN 2.7 g/dl (3.4-5.0); ANION GAP 13 MMOL/L (8-16); BLOOD UREA NITROGEN 60.4 mg/dL (7-18); CO2 21 mmol/L (21-32); GLUCOSE,RANDOM 136 mg/dL (74-106); MAGNESIUM 2.4 mg/dL (1.8-2.4)
[2022-12-11 12:42] LABS: PHOSPHOROUS 5.9 mg/dL (2.5-4.9)
[2022-12-11 12:43] LABS: SGPT/ALT 464 U/L (13-61)
[2022-12-11 12:44] LABS: BILIRUBIN,TOTAL 0.9 mg/dL (0.2-1); TOT PROT 5.8 g/dl (6.4-8.2)
[2022-12-11 12:46] LABS: ALK PHOS 314 U/L (45-117)
[2022-12-11] MEDS ORDERED: SODIUM CHLORIDE 0.9% 500 ML INFUS.BAG IV ONE (12:51)
[2022-12-11 12:54] LABS: CREATININE 7.9 mg/dL (0.55-1.3); SGOT/AST 1131 U/L (15-37)
[2022-12-11 14:02] LABS: ACTIVATED PTT 31.2 SECONDS (25.2-36.5)
[2022-12-11 14:07] LABS: LACTIC ACID 4.8 mmol/L (0.4-2.0)
[2022-12-11] MEDS ORDERED: ACETAMINOPHEN 325 MG TABLET (FP) PO PRN (14:08)
[2022-12-11 14:16] LABS: CALCIUM 8.1 mg/dL (8.5-10.1)
[2022-12-11 14:17] LABS: BLOOD UREA NITROGEN 57.2 mg/dL (7-18)
[2022-12-11 14:20] LABS: CREATININE 7.3 mg/dL (0.55-1.3)
[2022-12-11] MEDS: NOREPINEPHRINE BITARTRATE/D5W 8 MG/250 ML BAG IVPB SCH ×3 (15:13→23:34)
[2022-12-11] MEDS: PIPERACILLIN/TAZOB 4.5 GM 4.5 GM in DEXTROSE 5%-WATER 100 ML IVPB SCH ×2 (15:13→22:05)
[2022-12-11] MEDS ORDERED: SODIUM CHLORIDE 250 ML IV PRN (15:22)
[2022-12-11] MEDS ORDERED: VASOPRESSIN 20 UNITS/ML VIAL IV ONE (17:40)
[2022-12-11] MEDS ORDERED: VANCOMYCIN 1 GM/200 ML PREMIX BAG (RESTRICTED TO ID ONLY) IVPB ONE (18:00)
[2022-12-11] MEDS: VASOPRESSIN 40 UNITS/100 ML BAG IV SCH (18:00)
[2022-12-11 19:18] LABS: LACTIC ACID 2.3 mmol/L (0.4-2.0)
[2022-12-11] MEDS: ATORVASTATIN CA 40 MG TABLET (FP) PO SCH (21:30)
[2022-12-11] MEDS: TRIPLE LUMEN FLUSH 4 ML ML IVPUSH SCH (21:31)
[2022-12-11] MEDS: MUPIROCIN 2% TOPICAL OINTMENT FOR DECOLONIZATION NS SCH (21:31)
[2022-12-11] MEDS: APIXABAN 2.5 MG TABLET PO SCH (21:31)
[2022-12-11] MEDS: CHLORHEXIDINE GLUCONATE 4% CLEANSER FOR DECOLONIZATION TP SCH (21:31)
[2022-12-12 07:34] LABS: HEMATOCRIT 29.4 % (35.4-49); HEMOGLOBIN 9.9 GM/dL (11.7-16.9); MCH 32.1 pg (25.7-33.7); MCHC 33.7 g/dl (32.0-35.9); MEAN CELL VOLUME 95.3 fl (80-96); MEAN PLT VOLUME 9.6 fl (7.5-11.1); PLATELET COUNT 107 10^3/uL (134-434); RBC 3.09 M/mm3 (4.00-5.60); WHITE BLOOD COUNT 12.9 K/mm3 (4.0-10.0)
[2022-12-12 07:56] LABS: CREATININE 5.9 mg/dL (0.55-1.3)
[2022-12-12 07:57] LABS: TOT PROT 5.5 g/dl (6.4-8.2)
[2022-12-12 08:01] LABS: BILIRUBIN,TOTAL 1.4 mg/dL (0.2-1)
[2022-12-12] MEDS: ALBUTEROL SO4 0.083% IH SOL 2.5 MG/3 ML VIAL.NEB. NEB PRN ×3 (08:28→20:30)
[2022-12-12] MEDS: NOREPINEPHRINE BITARTRATE/D5W 8 MG/250 ML BAG IVPB SCH ×2 (08:34→15:30)
[2022-12-12] MEDS: PIPERACILLIN/TAZOB 4.5 GM 4.5 GM in DEXTROSE 5%-WATER 100 ML IVPB SCH (09:12)
[2022-12-12] MEDS: APIXABAN 2.5 MG TABLET PO SCH ×2 (09:12→22:06)
[2022-12-12] MEDS: MUPIROCIN 2% TOPICAL OINTMENT FOR DECOLONIZATION NS SCH ×2 (09:17→22:06)
[2022-12-12] MEDS: PIPERACILLIN/TAZOBACTAM 4.5 GM VIAL IVPB SCH ×2 (10:24→11:03)
[2022-12-12] MEDS ORDERED: SODIUM CHLORIDE 250 ML IV PRN (11:00)
[2022-12-12] MEDS: TRIPLE LUMEN FLUSH 4 ML ML IVPUSH SCH (11:10)
[2022-12-12] MEDS ORDERED: TRIPLE LUMEN FLUSH 4 ML ML IVPUSH PRN (11:25)
[2022-12-12 11:32] LABS: INR 2.6 (0.83-1.09); PROTHROMBIN TIME (PATIENT) 29.9 SEC (9.7-13.0)
[2022-12-12] MEDS: HYDROCORTISONE SOD SUCCINATE 100 MG/2 ML VIAL IVPUSH SCH ×3 (11:43→22:30)
[2022-12-12] MEDS: FLUDROCORTISONE ACETATE 0.1 MG TABLET (FP) PO SCH (11:49)
[2022-12-12] MEDS: VASOPRESSIN 40 UNITS/100 ML BAG IV SCH ×2 (11:55→20:09)
[2022-12-12 12:44] LABS: ALBUMIN 2.6 g/dl (3.4-5.0); ALK PHOS 266 U/L (45-117); ANION GAP 14 MMOL/L (8-16); BLOOD UREA NITROGEN 44.3 mg/dL (7-18); CHLORIDE 101 mmol/L (98-107); CO2 21 mmol/L (21-32); GLUCOSE,RANDOM 151 mg/dL (74-106); IRON SERUM 129 ug/dL (50-175); PHOSPHOROUS 5.5 mg/dL (2.5-4.9); SGOT/AST 1332 U/L (15-37); SGPT/ALT 574 U/L (13-61); SODIUM 136 mmol/L (136-145); TOTAL IRON BINDING CAPACITY 132 ug/dL (250-450)
[2022-12-12] MEDS ORDERED: IRON SUCROSE INJECTION 200 MG in SODIUM CHLORIDE 90 ML IVPB ONE (12:46)
[2022-12-12] MEDS ORDERED: morphine SULFATE 4 MG/ML VIAL ONE (14:19)
[2022-12-12] MEDS: PIPERACILLIN/TAZOB 2.25 GM 2.25 GM in DEXTROSE 5%-WATER - 50 ML IVPB SCH (17:45)
[2022-12-12] MEDS ORDERED: VANCOMYCIN 1 GM/200 ML PREMIX BAG (RESTRICTED TO ID ONLY) IVPB ONE (18:30)
[2022-12-12] MEDS: BUDESONIDE/FORMETEROL FUMARATE 80/4.5 mcg INHALER IH SCH (22:06)
[2022-12-12] MEDS: ATORVASTATIN CA 40 MG TABLET (FP) PO SCH (22:06)
[2022-12-12] MEDS: CHLORHEXIDINE GLUCONATE 4% CLEANSER FOR DECOLONIZATION TP SCH (22:06)
[2022-12-13] MEDS ORDERED: ONDANSETRON 4 MG/2 ML VIAL IVPUSH ONE (00:48)
[2022-12-13] MEDS: NOREPINEPHRINE BITARTRATE/D5W 8 MG/250 ML BAG IVPB SCH ×3 (00:57→17:07)
[2022-12-13] MEDS: PIPERACILLIN/TAZOB 2.25 GM 2.25 GM in DEXTROSE 5%-WATER - 50 ML IVPB SCH ×3 (02:11→17:07)
[2022-12-13] MEDS ORDERED: METOCLOPRAMIDE HCL INJECTION 10 MG/2 ML VIAL IVPUSH PRN (04:07)
[2022-12-13] MEDS: HYDROCORTISONE SOD SUCCINATE 100 MG/2 ML VIAL IVPUSH SCH ×4 (05:53→22:32)
[2022-12-13 07:48] LABS: HEMATOCRIT 31.6 % (35.4-49); HEMOGLOBIN 10.3 GM/dL (11.7-16.9); MCH 32.1 pg (25.7-33.7); MCHC 32.4 g/dl (32.0-35.9); MEAN CELL VOLUME 98.9 fl (80-96); MEAN PLT VOLUME 10.3 fl (7.5-11.1); PLATELET COUNT 96 10^3/uL (134-434); RDW 19.1 % (11.9-15.9); WHITE BLOOD COUNT 21.2 K/mm3 (4.0-10.0)
[2022-12-13 07:53] LABS: INR 3.31 (0.83-1.09)
[2022-12-13 08:06] LABS: CALCIUM 8.7 mg/dL (8.5-10.1)
[2022-12-13 08:07] LABS: ALBUMIN 2.6 g/dl (3.4-5.0); BLOOD UREA NITROGEN 60.8 mg/dL (7-18); MAGNESIUM 2.2 mg/dL (1.8-2.4)
[2022-12-13 08:11] LABS: BILIRUBIN,TOTAL 2.2 mg/dL (0.2-1); TOT PROT 5.7 g/dl (6.4-8.2)
[2022-12-13] MEDS ORDERED: VANCOMYCIN 750 MG in DEXTROSE 5%-WATER - 150 ML IVPB ONE (08:16)
[2022-12-13 08:36] LABS: CREATININE 7.4 mg/dL (0.55-1.3); PHOSPHOROUS 8.6 mg/dL (2.5-4.9)
[2022-12-13] MEDS: ALBUMIN HUMAN 25% 12.5 GM/50 ML VIAL IV SCH ×4 (09:00→10:30)
[2022-12-13] MEDS ORDERED: DEXTROSE 5% IVPB ONE ×2 (09:45→10:00)
[2022-12-13] MEDS ORDERED: WATER IVPB ONE ×2 (09:45→10:00)
[2022-12-13] MEDS ORDERED: ACETYLCYSTEINE IVPB ONE ×2 (09:45→10:00)
[2022-12-13] MEDS: MUPIROCIN 2% TOPICAL OINTMENT FOR DECOLONIZATION NS SCH ×2 (10:01→22:30)
[2022-12-13] MEDS: BUDESONIDE/FORMETEROL FUMARATE 80/4.5 mcg INHALER IH SCH ×2 (10:01→22:31)
[2022-12-13] MEDS ORDERED: ACETYLCYSTEINE INJECTION 20% 3,200 MG in DEXTROSE 5%-WATER - 500 ML IVPB ONE (11:00)
[2022-12-13] MEDS: FLUDROCORTISONE ACETATE 0.1 MG TABLET (FP) PO SCH (11:56)
[2022-12-13] MEDS: PANTOPRAZOLE 40 MG TABLET PO SCH (11:56)
[2022-12-13] MEDS: VASOPRESSIN 40 UNITS/100 ML BAG IV SCH ×2 (11:56→22:30)
[2022-12-13] MEDS ORDERED: VANCOMYCIN 1 GM in D5W (PRE-DOCKED) 1,000 MG/250 ML (RESTRICTED TO ID ONLY IVPB ONE (13:07)
[2022-12-13] MEDS ORDERED: VANCOMYCIN/WATER FOR INJ (PEG) 1,000 MG/200 ML BAG IVPB ONE (14:00)
[2022-12-13] MEDS ORDERED: ACETYLCYSTEINE INJECTION 20% 6,400 MG in DEXTROSE 5%-WATER - 1,000 ML IVPB ONE (15:00)
[2022-12-13] MEDS: CHLORHEXIDINE GLUCONATE 4% CLEANSER FOR DECOLONIZATION TP SCH (22:31)
[2022-12-13] MEDS: ATORVASTATIN CA 40 MG TABLET (FP) PO SCH (22:32)
[2022-12-14] MEDS: PIPERACILLIN/TAZOB 2.25 GM 2.25 GM in DEXTROSE 5%-WATER - 50 ML IVPB SCH ×3 (02:18→18:11)
[2022-12-14] MEDS: VASOPRESSIN 40 UNITS/100 ML BAG IV SCH ×2 (02:51→18:11)
[2022-12-14] MEDS: NOREPINEPHRINE BITARTRATE/D5W 8 MG/250 ML BAG IVPB SCH ×2 (02:53→16:17)
[2022-12-14] MEDS: HYDROCORTISONE SOD SUCCINATE 100 MG/2 ML VIAL IVPUSH SCH ×4 (06:14→22:47)
[2022-12-14 07:26] LABS: HEMATOCRIT 29.7 % (35.4-49); HEMOGLOBIN 9.7 GM/dL (11.7-16.9); MCH 32.3 pg (25.7-33.7); MCHC 32.8 g/dl (32.0-35.9); MEAN CELL VOLUME 98.5 fl (80-96); PLATELET COUNT 66 10^3/uL (134-434); RBC 3.01 M/mm3 (4.00-5.60); WHITE BLOOD COUNT 16.5 K/mm3 (4.0-10.0)
[2022-12-14 07:33] LABS: PROTHROMBIN TIME (PATIENT) 47.9 SEC (9.7-13.0)
[2022-12-14 07:48] LABS: CALCIUM 9.1 mg/dL (8.5-10.1)
[2022-12-14 07:49] LABS: ALBUMIN 2.8 g/dl (3.4-5.0); BLOOD UREA NITROGEN 46.5 mg/dL (7-18); MAGNESIUM 2.1 mg/dL (1.8-2.4)
[2022-12-14 07:52] LABS: BILIRUBIN,DIRECT 1.8 mg/dL (0.0-0.2); CREATININE 5.6 mg/dL (0.55-1.3); PHOSPHOROUS 8.1 mg/dL (2.5-4.9)
[2022-12-14 07:53] LABS: BILIRUBIN,TOTAL 3.2 mg/dL (0.2-1)
[2022-12-14 07:54] LABS: TOT PROT 5.5 g/dl (6.4-8.2)
[2022-12-14 08:10] LABS: INR 4.19 (0.83-1.09)
[2022-12-14] MEDS: FLUDROCORTISONE ACETATE 0.1 MG TABLET (FP) PO SCH (10:02)
[2022-12-14] MEDS: PANTOPRAZOLE 40 MG TABLET PO SCH (10:02)
[2022-12-14] MEDS: MUPIROCIN 2% TOPICAL OINTMENT FOR DECOLONIZATION NS SCH ×2 (10:02→21:25)
[2022-12-14] MEDS: BUDESONIDE/FORMETEROL FUMARATE 80/4.5 mcg INHALER IH SCH ×2 (10:03→21:25)
[2022-12-14] MEDS ORDERED: PHYTONADIONE 10 MG/1 ML AMP IVPB ONE (12:23)
[2022-12-14] MEDS: ATORVASTATIN CA 40 MG TABLET (FP) PO SCH (21:25)
[2022-12-14] MEDS: CHLORHEXIDINE GLUCONATE 4% CLEANSER FOR DECOLONIZATION TP SCH (21:25)
[2022-12-15] MEDS: PIPERACILLIN/TAZOB 2.25 GM 2.25 GM in DEXTROSE 5%-WATER - 50 ML IVPB SCH ×3 (01:04→17:44)
[2022-12-15] MEDS: HYDROCORTISONE SOD SUCCINATE 100 MG/2 ML VIAL IVPUSH SCH ×2 (05:40→11:44)
[2022-12-15] MEDS: ALBUTEROL SO4 0.083% IH SOL 2.5 MG/3 ML VIAL.NEB. NEB PRN (07:15)
[2022-12-15 07:51] LABS: HEMATOCRIT 29.8 % (35.4-49); HEMOGLOBIN 9.7 GM/dL (11.7-16.9); MCH 32.3 pg (25.7-33.7); MCHC 32.7 g/dl (32.0-35.9); MEAN CELL VOLUME 98.9 fl (80-96); MEAN PLT VOLUME 10.7 fl (7.5-11.1); PLATELET COUNT 75 10^3/uL (134-434); RBC 3.01 M/mm3 (4.00-5.60); RDW 19.5 % (11.9-15.9); WHITE BLOOD COUNT 16.6 K/mm3 (4.0-10.0)
[2022-12-15 07:55] LABS: PROTHROMBIN TIME (PATIENT) 50.4 SEC (9.7-13.0)
[2022-12-15 08:07] LABS: CALCIUM 10.1 mg/dL (8.5-10.1)
[2022-12-15 08:08] LABS: ALBUMIN 2.9 g/dl (3.4-5.0); BLOOD UREA NITROGEN 65.2 mg/dL (7-18); MAGNESIUM 2.4 mg/dL (1.8-2.4)
[2022-12-15 08:11] LABS: BILIRUBIN,DIRECT 3.2 mg/dL (0.0-0.2); CREATININE 6.9 mg/dL (0.55-1.3)
[2022-12-15 08:13] LABS: TOT PROT 5.3 g/dl (6.4-8.2)
[2022-12-15 08:22] LABS: BILIRUBIN,TOTAL 4.8 mg/dL (0.2-1)
[2022-12-15 08:24] LABS: INR 4.41 (0.83-1.09)
[2022-12-15 09:05] LABS: PHOSPHOROUS 8.9 mg/dL (2.5-4.9)
[2022-12-15] MEDS ORDERED: EPOETIN ALFA-EPBX 10,000 UNIT/ML VIAL IVPUSH ONE (09:30)
[2022-12-15] MEDS ORDERED: SODIUM CHLORIDE 250 ML IV PRN (09:30)
[2022-12-15] MEDS ORDERED: FUROSEMIDE 40 MG/4 ML INJECTABLE VIAL IVPUSH ONE (09:37)
[2022-12-15] MEDS: PANTOPRAZOLE 40 MG TABLET PO SCH (09:56)
[2022-12-15] MEDS: FLUDROCORTISONE ACETATE 0.1 MG TABLET (FP) PO SCH (09:56)
[2022-12-15] MEDS: MUPIROCIN 2% TOPICAL OINTMENT FOR DECOLONIZATION NS SCH (09:57)
[2022-12-15] MEDS: BUDESONIDE/FORMETEROL FUMARATE 80/4.5 mcg INHALER IH SCH (09:57)
[2022-12-15] MEDS: APIXABAN 2.5 MG TABLET PO SCH (10:04)
[2022-12-15] MEDS: NOREPINEPHRINE BITARTRATE/D5W 8 MG/250 ML BAG IVPB SCH (15:16)
[2022-12-15] MEDS: VASOPRESSIN 40 UNITS/100 ML BAG IV SCH (17:45)
[2022-12-15] MEDS ORDERED: VASOPRESSIN 20 UNITS/ML VIAL IV ONE (18:43)
[2022-12-15] MEDS ORDERED: MORPHINE SULFATE/0.9% NACL/PF 100 MG/100 ML BAG IVPB SCH (19:00)
[2022-12-15] MEDS ORDERED: HYDROCORTISONE SOD SUCCINATE 100 MG/2 ML VIAL IVPUSH SCH (22:00)
[2022-12-16 00:14] VITALS: BP 72/41
[2022-12-16 10:36] VITALS: TEMP 97.5
[2022-12-16 10:54] VITALS: BMI 22.7
[2022-12-16] MEDS ORDERED: MORPHINE SULFATE/0.9% NACL/PF 100 MG/100 ML BAG IVPB SCH (22:45)
[2022-12-17 04:28] VITALS: PULSE 82; RESP 16
== END 2022-12-17 05:52 | disposition expired | DRG 871 ==
LOC: JER 11:29 → JERBED 13:38 → JICU 14:09
PROVIDERS: ADMIT Internal Medicine Pulmonary Disease; ATTEND Internal Medicine Pulmonary Disease
PROC: 05HM33Z Insertion of Infusion Device into Right Internal Jugular Vein, Percutaneous Approach (ICD-10-PCS; principal; 2022-12-11)
PROC: B543ZZA Ultrasonography of Right Jugular Veins, Guidance (ICD-10-PCS; 2022-12-11)
PROC: 5A1D70Z Performance of Urinary Filtration, Intermittent, Less than 6 Hours Per Day (ICD-10-PCS; 2022-12-13)
DX: A41.9 Sepsis, unspecified organism (principal); D65 Disseminated intravascular coagulation [defibrination syndrome]; I33.0 Acute and subacute infective endocarditis; K72.00 Acute and subacute hepatic failure without coma; N18.6 End stage renal disease; R65.21 Severe sepsis with septic shock; J96.01 Acute respiratory failure with hypoxia; I24.8 Other forms of acute ischemic heart disease; E87.20 Acidosis, unspecified; I12.0 Hypertensive chronic kidney disease with stage 5 chronic kidney disease or end stage renal disease; R64 Cachexia; R57.0 Cardiogenic shock; E87.70 Fluid overload, unspecified; I34.0 Nonrheumatic mitral (valve) insufficiency; D69.6 Thrombocytopenia, unspecified; D64.9 Anemia, unspecified; D72.829 Elevated white blood cell count, unspecified; Z68.22 Body mass index [BMI] 22.0-22.9, adult; I46.9 Cardiac arrest, cause unspecified; N40.0 Benign prostatic hyperplasia without lower urinary tract symptoms; R62.7 Adult failure to thrive
CPT/HCPCS: 0241U-QW; 36415; 71045-TC-FY; 76705-TC; 80048; 80053; 80076; 82550; 82607; 82728; 82746; 82803; 83540; 83550; 83605; 83735; 84100; 84484; 85025; 85027; 85610; 85730; 86704; 86708; 86803; 87040; 87340; 87517; 93005; 93010; 93306-TC; 94640; 94660; 99285-25; G0480; J1756; J3490; P9047; Q5106